=== PATIENT | male | born 1980 | race Caucasian/White ===

== ENCOUNTER 2021-06-20 13:37 | Inpatient (IN) | payer OTHER, SELFPAY ==
[2021-06-20] VITALS (151 sets, daily range): BP systolic 149–179; BP diastolic 84–118; PULSE 94–137; RESP 9–29; TEMP 36.7–37.2; O2SAT 97–100
--- NOTE | 2021-06-20 14:15 | RT.EKG_ITS ---
APPROVED REPORT Exam: Resting ECG Reason for Exam: tachycardia Patient Location: E HR:115 bpm ECG Measurements Heart Rate 115 AXIS CO 164 P 36 QRSd 95 QRS 56 QT 348 T 41 QTc 481 Conclusion Sinus tachycardia...rate> 99
[2021-06-20 14:50] LABS: Source Nasal/Nares
[2021-06-20] MEDS: PHENobarbital 130 MG/ML VIAL IVP ×2 (15:19→16:07)
[2021-06-20] MEDS: Lactated Ringers 1,000 ML 1000 ML IV (15:19)
[2021-06-20 15:27] LABS: Abs Immature Grans 0.03 10^3/uL (0.0-0.06); Absolute Basophil Count 0.02 10^3/uL (0.0-0.2); Absolute Eosinophil Count 0.16 10^3/uL (0.0-0.7); Absolute Lymphocyte Count 0.49 10^3/uL (1.2-3.4); Absolute Monocyte Count 0.55 10^3/uL (0.1-0.8); Absolute Neutrophil Count 4.52 10^3/uL (1.2-6.7); Basophils % 0.3; Eosinophils % 2.8; HCT 40.2 % (40.0-50.0); HGB 13.7 g/dL (13.5-17.5); Immature Grans % 0.5; Lymphocytes % 8.5; MCH 30.7 pg (27.0-33.0); MCHC 34.1 % (32.0-36.0); MCV 90 fL (80-95); MPV 12.5 fL (8.0-11.0); Monocytes % 9.5; Neutrophils % 78.4; RBC 4.46 10^6/uL (4.36-5.78); RDW 13.9 % (11.8-14.1); WBC 5.77 10^3/uL (4.4-10.8)
[2021-06-20 15:29] LABS: COVID-19 PCR Negative (Negative)
[2021-06-20 15:33] LABS: Ammonia < 10 umol/L (11-32)
--- NOTE | 2021-06-20 15:33 | ED.GENADUL_ITS ---
Discharge Plan Disposition Patient Disposition: [facility] INPATIENT Condition: Serious Discharge Details Clinical Impression: Alcohol withdrawal, Seizure, Thrombocytopenia Admit Date/Time: 06/20/21 18:54 Admit Provider: Sajan Ryan Attending Provider: Sajan Ryan Primary Care Provider: None,None ED Provider: Jayant Harris Discharge Data Discharge Date/Time-TO BE ENTERED AT DEPARTURE: 06/20/21 20:02 Medical Decision Making <MIKY Car Last Filed: 06/21/21 09:48> Patient is alert and oriented x1, maintaining airway, I suspect patient had a seizure as he has bilateral tongue lacerations Patient appears load in speech, disheveled, tremulous, with injected conjunctiva His CIWA is 19 He was given phenobarb 130, he is very elusive about how much he drinks on a daily basis Patient was notably tachycardic in the 130s upon initial assessment, his EKG does not show acute abnormality Patient will likely need admission, he is agreeable to admission at this time IV was placed Diagnostic labs pneumonia pending I think patient also needs CT scan with new onset seizure and likely alcohol withdrawal transferred to Jayant Harris PA-C at 1600 Medical Records Medical records reviewed: Yes I reviewed the patient's medical records. Lab Data Lab results reviewed: Yes I reviewed the patient's lab results. <MIKY Hinton Last Filed: 06/20/21 18:57> Patient is alert and oriented x1, maintaining airway, I suspect patient had a seizure as he has bilateral tongue lacerations Patient appears load in speech, disheveled, tremulous, with injected conjunctiva His CIWA is 19 He was given phenobarb 130, he is very elusive about how much he drinks on a daily basis Patient was notably tachycardic in the 130s upon initial assessment, his EKG does not show acute abnormality Patient will likely need admission, he is agreeable to admission at this time IV was placed Diagnostic labs pneumonia pending I think patient also needs CT scan with new onset seizure and likely alcohol withdrawal transferred to Jayant Harris PA-C at 1600 1600 Jayant Harris PA-C I assumed care of this 41-year-old gentleman from my colleague MIKY Burk, please see her initial HPI and examination. In short, 41-year-old gentleman presented not feeling well, reporting sweating, feeling tremulous, over the past day or so. Reports that he binge drinks at least 2 times a week and last drink 2 nights ago. Apparently upon presentation he appeared as though he may be post ictal. Patient received phenobarbital 130x2, bag of IV fluid as well as a banana bag. Heart rate went from the 130s down into the low 100s. Upon my evaluation he is awake, alert, oriented to self, location, situation, he is unsure of the exact date. Laboratory values reveal a white blood cell count of 5.77 hemoglobin 13.7 hematocrit 40.2. Platelet count is just 39. There are no petechiae like rash is present on his evaluation. Sodium 131 potassium 3.8 chloride 94 anion gap 11.3 creatinine 1.0 with a GFR greater than 60. Glucose 103, phosphorus 2.4 magnesium 3.0 total bili 1.2 AST 146, ALT 108, alk phosphatase 85. Liver enzymes slightly elevated. Ammonia less than 10, lipase 126, TSH 0.72. Tox screen positive for barbiturates, alcohol level less than 3, COVID-negative. Both head CT and chest x-ray read by radiology as unremarkable. Resting heart rate of 113 but upon patient standing to urinate heart rate does jump up into the 150s. He sits back down the heart rate goes back down into the 110's and 120s. Repeat CIWA of 12-13 41-year-old gentleman with what appears to be alcohol withdrawal, seizure elevated LFTs and thrombocytopenia. He has been treated with phenobarbital for his alcohol withdrawal. Plan is to contact our hospitalist team to admit the patient to our ICU Case discussed with Dr. Ryan who is agreeable to admission and will write admission orders but request that we add on a PT and INR. Will add on PT and INR This documentation was generated using [employer] system, please disregard any oddities of phrase or misspellings. Medical Records Medical records reviewed: Yes I reviewed the patient's medical records. Imaging Data Radiologic Study: Attestation: I personally reviewed and interpreted this imaging study as follows: Imaging: CT Scan Radiologist's impression: PROCEDURE INFORMATION: Exam: CT Head Without Contrast Exam date and time: 06/20/2021 4:43 PM Age: 41 years old Clinical indication: Patient HX: Alcohol withdrawal, seizure TECHNIQUE: Imaging protocol: Computed tomography of the head without contrast. Radiation optimization: All CT scans at this facility use at least one of these dose optimization techniques: automated exposure control; mA and/or kV adjustment per patient size (includes targeted exams where dose is matched to clinical indication); or iterative reconstruction. COMPARISON: No relevant prior studies available. FINDINGS: Brain: Unremarkable. No intracranial hemorrhage. Unremarkable white matter. No mass effect. Cerebral ventricles: No ventriculomegaly. Paranasal sinuses: Right maxillary sinus mucosal cyst or polyp. Mastoid air cells: Visualized mastoid air cells are well aerated. Auditory system: Debris occludes the left external auditory canal. Bones/joints: Unremarkable. No acute fracture. Soft tissues: Unremarkable. IMPRESSION: 1. Right maxillary sinus mucosal cyst or polyp. 2. Debris occludes the left external auditory canal. Patient could benefit from removal for improved hearing and balance. Radiologic Study #2: Attestation: I personally reviewed and interpreted this imaging study as follows: Imaging: X-Ray Radiologist's impression: PROCEDURE INFORMATION: Exam: XR Chest Exam date and time: 06/20/2021 4:45 PM Age: 41 years old Clinical indication: Other: AMS TECHNIQUE: Imaging protocol: XR of the chest. Views: 2 views. COMPARISON: No relevant prior studies available. FINDINGS: Lungs: Unremarkable. No consolidation. Pleural spaces: Unremarkable. No pleural effusion. No pneumothorax. Heart/Mediastinum: Unremarkable. No cardiomegaly. Bones/joints: Old right clavicular fracture. IMPRESSION: No acute cardiopulmonary findings. Lab Data Labs: Laboratory Tests Range/Units 06/20/21 06/20/21 06/20/21 14:32 14:45 14:45 WBC (4.4-10.8) 10^3/uL 5.77 RBC (4.36-5.78) 10^6/uL 4.46 Hgb (13.5-17.5) g/dL 13.7 Hct (40.0-50.0) % 40.2 MCV (80-95) fL 90 MCH (27.0-33.0) pg 30.7 MCHC (32.0-36.0) % 34.1 RDW (11.8-14.1) % 13.9 Plt Count (130-400) 10^3/uL 39 L MPV (8.0-11.0) fL 12.5 H Immature Gran % 0.5 Neutrophils % 78.4 Lymphocytes % 8.5 Monocytes % 9.5 Eosinophils % 2.8 Basophils % 0.3 Nucleated RBC % (0.0-0.3) % 0.0 Absolute Neutrophils (1.2-6.7) 10^3/uL 4.52 Absolute Lymphocytes (1.2-3.4) 10^3/uL 0.49 L Absolute Monocytes (0.1-0.8) 10^3/uL 0.55 Absolute Eosinophils (0.0-0.7) 10^3/uL 0.16 Absolute Basophils (0.0-0.2) 10^3/uL 0.02 RBC Morphology See Below Stomatocytes 2+ Sodium (136-145) mmol/L 131 L Potassium (3.5-5.1) mmol/L 3.8 Chloride (98-107) mmol/L 94 L Carbon Dioxide (21.0-32.0) mmol/L 25.7 Anion Gap (3-11) mmol/L 11.3 H BUN (7-18) mg/dL 14 Creatinine (0.70-1.30) mg/dL 1.1 Estimated GFR/1.73 m2 (mL/min/1.73m2) >= 60.00 Glucose (74-106) mg/dL 103 Calcium (8.5-10.1) mg/dL 8.5 Phosphorus (2.6-4.7) mg/dL Magnesium (1.8-2.4) mg/dL 3.0 H Total Bilirubin (0.2-1.0) mg/dL 1.2 H AST (15-37) U/L 146 H ALT (16-63) U/L 108 H Alkaline Phosphatase (46-116) U/L 85 Ammonia (11-32) umol/L Total Protein (6.4-8.2) g/dL 7.7 Albumin (3.4-5.0) g/dL 4.2 Lipase (73-393) U/L 126 TSH (0.36-3.74) uIU/mL 0.72 Urine Opiates Screen (Negative) Urine Methadone Screen (Negative) Ur Barbiturates Screen (Negative) Ur Tricyclics Screen (Negative) Ur Amphetamines Screen (Negative) U Benzodiazepines Scrn (Negative) Urine Cocaine Screen (Negative) Ur THC Screen (Negative) Ethyl Alcohol (<10) mg/dL COVID-19 Source Nasal/Nares SARS-CoV-2 (PCR) (Negative) Negative Range/Units 06/20/21 06/20/21 06/20/21 14:45 14:45 14:45 WBC (4.4-10.8) 10^3/uL RBC (4.36-5.78) 10^6/uL Hgb (13.5-17.5) g/dL Hct (40.0-50.0) % MCV (80-95) fL MCH (27.0-33.0) pg MCHC (32.0-36.0) % RDW (11.8-14.1) % Plt Count (130-400) 10^3/uL MPV (8.0-11.0) fL Immature Gran % Neutrophils % Lymphocytes % Monocytes % Eosinophils % Basophils % Nucleated RBC % (0.0-0.3) % Absolute Neutrophils (1.2-6.7) 10^3/uL Absolute Lymphocytes (1.2-3.4) 10^3/uL Absolute Monocytes (0.1-0.8) 10^3/uL Absolute Eosinophils (0.0-0.7) 10^3/uL Absolute Basophils (0.0-0.2) 10^3/uL RBC Morphology Stomatocytes Sodium (136-145) mmol/L Potassium (3.5-5.1) mmol/L Chloride (98-107) mmol/L Carbon Dioxide (21.0-32.0) mmol/L Anion Gap (3-11) mmol/L BUN (7-18) mg/dL Creatinine (0.70-1.30) mg/dL Estimated GFR/1.73 m2 (mL/min/1.73m2) Glucose (74-106) mg/dL Calcium (8.5-10.1) mg/dL Phosphorus (2.6-4.7) mg/dL 2.4 L Magnesium (1.8-2.4) mg/dL Total Bilirubin (0.2-1.0) mg/dL AST (15-37) U/L ALT (16-63) U/L Alkaline Phosphatase (46-116) U/L Ammonia (11-32) umol/L < 10 L Total Protein (6.4-8.2) g/dL Albumin (3.4-5.0) g/dL Lipase (73-393) U/L TSH (0.36-3.74) uIU/mL Urine Opiates Screen (Negative) Urine Methadone Screen (Negative) Ur Barbiturates Screen (Negative) Ur Tricyclics Screen (Negative) Ur Amphetamines Screen (Negative) U Benzodiazepines Scrn (Negative) Urine Cocaine Screen (Negative) Ur THC Screen (Negative) Ethyl Alcohol (<10) mg/dL < 3.0 COVID-19 Source SARS-CoV-2 (PCR) (Negative) Range/Units 06/20/21 18:00 WBC (4.4-10.8) 10^3/uL RBC (4.36-5.78) 10^6/uL Hgb (13.5-17.5) g/dL Hct (40.0-50.0) % MCV (80-95) fL MCH (27.0-33.0) pg MCHC (32.0-36.0) % RDW (11.8-14.1) % Plt Count (130-400) 10^3/uL MPV (8.0-11.0) fL Immature Gran % Neutrophils % Lymphocytes % Monocytes % Eosinophils % Basophils % Nucleated RBC % (0.0-0.3) % Absolute Neutrophils (1.2-6.7) 10^3/uL Absolute Lymphocytes (1.2-3.4) 10^3/uL Absolute Monocytes (0.1-0.8) 10^3/uL Absolute Eosinophils (0.0-0.7) 10^3/uL Absolute Basophils (0.0-0.2) 10^3/uL RBC Morphology Stomatocytes Sodium (136-145) mmol/L Potassium (3.5-5.1) mmol/L Chloride (98-107) mmol/L Carbon Dioxide (21.0-32.0) mmol/L Anion Gap (3-11) mmol/L BUN (7-18) mg/dL Creatinine (0.70-1.30) mg/dL Estimated GFR/1.73 m2 (mL/min/1.73m2) Glucose (74-106) mg/dL Calcium (8.5-10.1) mg/dL Phosphorus (2.6-4.7) mg/dL Magnesium (1.8-2.4) mg/dL Total Bilirubin (0.2-1.0) mg/dL AST (15-37) U/L ALT (16-63) U/L Alkaline Phosphatase (46-116) U/L Ammonia (11-32) umol/L Total Protein (6.4-8.2) g/dL Albumin (3.4-5.0) g/dL Lipase (73-393) U/L TSH (0.36-3.74) uIU/mL Urine Opiates Screen (Negative) Negative Urine Methadone Screen (Negative) Negative Ur Barbiturates Screen (Negative) Positive A Ur Tricyclics Screen (Negative) Negative Ur Amphetamines Screen (Negative) Negative U Benzodiazepines Scrn (Negative) Negative Urine Cocaine Screen (Negative) Negative Ur THC Screen (Negative) Negative Ethyl Alcohol (<10) mg/dL COVID-19 Source SARS-CoV-2 (PCR) (Negative) HPI <MIKY Car - Last Filed: 06/21/21 09:48> General Date/Time Provider Initiated Documentation: 06/20/21 14:06 . HPI Narrative: This 41-year-old male with history of hypertension presents with vague complaints and is a poor historian about feeling very tired. He states he is also not been sleeping well. He was noted to have trauma in triage and when asked regarding the fact that occasionally he has a tremor. He denies any pain complaints does state he has some mild pressure in his head. He denies any fever or chills. He states that his son been sick with cough and cold symptoms but denies any personal history of the symptoms. Denies any calf pain or swelling. Denies any recent exotic travel. Denies illicit drug use. Report alcohol use but denies daily use. Related Data Home Medications Medication Instructions Recorded Confirmed losartan 25 mg tablet mg 06/20/21 Allergies Allergy/AdvReac Type Severity Reaction Status Date / Time No Known Allergies Allergy Unverified 06/20/21 13:59 General Stated Complaint: RespSymp AZAEL: 3 Review of Systems <MIKY Car - Last Filed: 06/21/21 09:48> All systems reviewed & are unremarkable except as noted in HPI and below PFSH <MIKY Car - Last Filed: 06/21/21 09:48> All Active Problems (Updated 06/20/21 @ 23:38 by Sajan Ryan) Alcoholic hepatitis without ascites (Chronic) Atrial flutter (Acute) Essential hypertension (Chronic) Obstructive sleep apnea (Chronic) Alcohol withdrawal (Acute) Seizure (Acute) Thrombocytopenia (Chronic) Medical History ADHD (attention deficit hyperactivity disorder) Anxiety Subdural hematoma Surgical History Appendectomy Family History (Updated 06/20/21 @ 23:32 by Sajan Ryan) Other Alcohol use disorder Essential hypertension Heart disease Personal history of malignant neoplasm Social History Smoking/Tobacco Use Status: Former Tobacco Use Smoking risk assessment performed?: Yes Alcohol Intake: current Drug use: Rarely Substance use type: marijuana Details: Pt states he only drinks in intervals, is poor historian and not answering in definite amounts Do you feel safe at home: Yes Do you feel safe in your relationship?: Yes Exam <MIKY Car - Last Filed: 06/21/21 09:48> Const General: cooperative, comfortable and no acute distress Orientation: alert and oriented x3 HENMT Other: Tongue laceration bilaterally Eyes Conjunctivae: conjunctival abnormality Pupils: PERRL Neck Other: no midline tenderness Resp Effort & Inspection: normal respiratory effort Auscultation: clear to auscultation bilaterally Cardio Rate: tachycardic Rhythm: regular rhythm GI Inspection: normal to inspection Other: Nontender abdominal exam, no visible sign of trauma Skin Other: Diaphoretic Neuro General: patient alert and patient oriented x3 Other: Tremulous alert and oriented to person and month, unable to recall the year and president Extrem General: normal to inspection Psych Appearance: disheveled Speech and Movement: pressured speech and restless Mood: anxious mood Attitude: cooperative Thought Content: no homicidality and suicidality Course <MIKY Car - Last Filed: 06/21/21 09:48> Vital Signs Vital signs: Vital Signs Temperature 37.2 C 06/20/21 13:55 Pulse 136 H 06/20/21 13:55 Respiratory Rate 20 06/20/21 13:55 Blood Pressure 151/92 H 06/20/21 13:55 Pulse Oximetry 97 06/20/21 13:55 Temperature 37.2 C 06/20/21 13:55 Temperature Source Temporal Artery Scan 06/20/21 13:55 Pulse 136 H 06/20/21 13:55 Respiratory Rate 20 06/20/21 13:55 Respiratory Effort Non-Labored 06/20/21 15:27 Respiratory Pattern Normal 06/20/21 15:11 Blood Pressure 151/92 H 06/20/21 13:55 Blood Pressure Position Sitting 06/20/21 13:55 Pulse Oximetry 97 06/20/21 13:55 Oxygen Delivery Method Room Air 06/20/21 13:55 Oxygen Flow Rate 0 06/20/21 13:55 Pain Level 0 06/20/21 13:55 Lab/Test Results Lab/Test Results: Laboratory Tests Range/Units 06/20/21 06/20/21 14:32 14:45 Ammonia (11-32) umol/L < 10 L COVID-19 Source Nasal/Nares <MIKY Hinton - Last Filed: 06/20/21 18:57> Critical Care Time Critical Care Time: Yes Total Critical Care Time: 35 Attestation: Upon my evaluation, this patient had a high probability of clinically significant, life-threatening deterioration due to their current medical conditions, which required my direct attention, intervention, and personal management. I have personally provided greater than 30 minutes of critical care time exclusive of the time spend on separately billable procedures. Time includes obtaining a history, examining the patient, pulse oximetry, review of laboratory data, radiology results, discussion with consultants, arranging urgent treatment with development of a management plan, evaluation of patient's response to treatment, and monitoring for potential decompensation. Interventions were performed as documented above. Sign Out <MIKY Car - Last Filed: 06/21/21 09:48> Sign Out Data: Sign Out Comment: pending labs, ct head, ciwa, likely admission for etoh withdrawal, PUI Last updated by Tonya Burk PA at 06/20/21 15:43 PAWSS <MIKY Car - Last Filed: 06/21/21 09:48> Have you Been Recently Intoxicated or Drunk Within the Last 30 days?: Yes Have you Ever Experienced Previous Episodes of Alcohol Withdrawal?: Yes Have you ever Experienced Withdrawal Seizures?: No Have you ever Experienced Delirium Tremens(DT)s?: Yes Have you ever undergone Alcohol Rehabilitation Treatment (i.e, inpt ot out patient treatment programs)?: No Have you ever Experienced Blackouts?: No Have you ever Combined Alcohol with other Downers within the last 90 days?: No Have you ever Combined Alcohol with any other Substance of Abuse during the last 90 days?: No Positive Blood Alcohol level on Presentation? [PCS.BAL]: Yes Evidence of Increased Autonomic Activity (i.e. HR>120, tremor, sweating, agitation, nausea)?: Yes Result: 5 <MIKY Hinton - Last Filed: 06/20/21 18:57> Result: 5
[2021-06-20 15:37] LABS: ETHANOL BLOOD < 3.0 mg/dL (<10)
[2021-06-20 15:38] LABS: PHOSPHORUS 2.4 mg/dL (2.6-4.7)
[2021-06-20 15:46] LABS: ALT 108 U/L (16-63); AST 146 U/L (15-37); Albumin 4.2 g/dL (3.4-5.0); Alkaline Phosphatase 85 U/L (46-116); Anion Gap 11.3 mmol/L (3-11); BUN 14 mg/dL (7-18); Bilirubin, Total 1.2 mg/dL (0.2-1.0); CO2 25.7 mmol/L (21.0-32.0); CREATININE 1.1 mg/dL (0.70-1.30); Calcium 8.5 mg/dL (8.5-10.1); Chloride 94 mmol/L (98-107); Glucose 103 mg/dL (74-106); Lipase 126 U/L (73-393); Potassium 3.8 mmol/L (3.5-5.1); Sodium 131 mmol/L (136-145); TSH (W/Ref FT4) 0.72 uIU/mL (0.36-3.74); Total Protein 7.7 g/dL (6.4-8.2)
[2021-06-20 16:08] LABS: Diff Comment Diff Reviewed; Platelet Count 39 10^3/uL (130-400)
[2021-06-20 16:09] LABS: Stomatocytes 2+
[2021-06-20] MEDS: MAGNESIUM SULFATE 8.12 MEQ, MULTIVITAMIN 10 ML, THIAMINE 100 MG, FOLIC ACID 1 MG in Nor... 168.867 MG IV (16:23)
--- NOTE | 2021-06-20 16:30 | DI.RAD_ITS ---
Exam(s) XR CHEST 2V PA LATERAL EXAM: XR CHEST 2V PA LATERAL CLINICAL HISTORY: ams TECHNIQUE: 2D digital imaging was performed. COMPARISON: CR CHEST 2 VIEWS PA,LAT from 05/08/2012 FINDINGS: The heart is not enlarged. The lungs are clear and well expanded. No pleural effusion seen. Mediastin al contours appear intact. IMPRESSION: Normal chest. RADIATION DOSE DELIVERED: Total DLP
--- NOTE | 2021-06-20 16:47 | DI.CT_ITS ---
Exam(s) CT HEAD WO EXAM: CT HEAD WO CLINICAL HISTORY: alcohol withdrawal seizure. TECHNIQUE: Imaging Protocol: Axial computed tomography images with coronal and sagittal reformatted images were created and reviewed COMPARISON: CT HEAD WITHOUT CONTRAST from 05/15/2013 FINDINGS: The ventricular system is normal in appearance. No evidence of acute intracranial hemorrhage, mass effect, or midline shift. The orbital structures are unremarkable. The temporal bone structures appear intact. Calvarium: Normal. Visualized Paranasal sinuses/Mastoids: Clear except for a probable right maxillary retention cyst. IMPRESSION: Normal cranial CT. RADIATION DOSE DELIVERED: 919.16mGy.cm Total DLP 919.16mGy.cm Total DLP !Error CTDIvol DATA REPOSITORY: All CT scans at this facility are submitted to the National Radiology Data Registry (NRDR) Dose Index Registry (DIR) with the [employer] [place] [employer] ([employer]). RADIATION OPTIMIZATION: All CT scans at this facility use at least one of these dose optimization te chniques: automated exposure control; mA and/or kV adjustment per patient size (includes targeted exa ms where dose is matched to clinical indication); or iterative reconstruction.
--- NOTE | 2021-06-20 17:01 | DI.VRAD_ITS ---
PROCEDURE INFORMATION: Exam: XR Chest Exam date and time: 06/20/2021 4:45 PM Age: 41 years old Clinical indication: Other: AMS TECHNIQUE: Imaging protocol: XR of the chest. Views: 2 views. COMPARISON: No relevant prior studies available. FINDINGS: Lungs: Unremarkable. No consolidation. Pleural spaces: Unremarkable. No pleural effusion. No pneumothorax. Heart/Mediastinum: Unremarkable. No cardiomegaly. Bones/joints: Old right clavicular fracture. IMPRESSION: No acute cardiopulmonary findings. Dictated and Authenticated by: Rachel Jacobo MD. Ordering:AMINATA Saba MD
--- NOTE | 2021-06-20 17:08 | DI.VRAD_ITS ---
PROCEDURE INFORMATION: Exam: CT Head Without Contrast Exam date and time: 06/20/2021 4:43 PM Age: 41 years old Clinical indication: Patient HX: Alcohol withdrawal, seizure TECHNIQUE: Imaging protocol: Computed tomography of the head without contrast. Radiation optimization: All CT scans at this facility use at least one of these dose optimization techniques: automated exposure control; mA and/or kV adjustment per patient size (includes targeted exams where dose is matched to clinical indication); or iterative reconstruction. COMPARISON: No relevant prior studies available. FINDINGS: Brain: Unremarkable. No intracranial hemorrhage. Unremarkable white matter. No mass effect. Cerebral ventricles: No ventriculomegaly. Paranasal sinuses: Right maxillary sinus mucosal cyst or polyp. Mastoid air cells: Visualized mastoid air cells are well aerated. Auditory system: Debris occludes the left external auditory canal. Bones/joints: Unremarkable. No acute fracture. Soft tissues: Unremarkable. IMPRESSION: 1. Right maxillary sinus mucosal cyst or polyp. 2. Debris occludes the left external auditory canal. Patient could benefit from removal for improved hearing and balance. Dictated and Authenticated by: Rachel Jacobo MD. Ordering:IADLMIS Castaneda MD
[2021-06-20 18:33] LABS: *AMPHETAMINES SCREEN URINE Negative (Negative); *BARBITURATES SCREEN URINE Positive (Negative); *BENZODIAZEPINES SCREEN URINE Negative (Negative); Cannabinoids THC Negative (Negative); Cocaine Screen,Urine Negative (Negative); METHADONE URINE SCREEN Negative (Negative); OPIATES URINE SCREEN Negative (Negative)
[2021-06-20 18:48] LABS: Tricyclic Antidepressants Negative (Negative)
--- NOTE | 2021-06-20 19:06 | HPE_ITS ---
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 Patient was noted to be having tremors and noted to have bitten his tongue and probably had an alcohol withdrawal seizure at home prior to presentation. He has not had a drink over the last day. He is vague about his alcohol consumption but does binge drink and has had follow-up with alcohol since he was a teenager and in the [employer] where he did go through alcohol rehabilitation. He also has a history of atrial flutter with tachycardia in the ED but this appears to be more sinus tachycardia. Patient will be given IV hydration. He is on phenobarbital with alcohol withdrawal protocol and still received a loading dose no delusional thoughts but having severe tremors with tachycardia and hypotension. His labs will be trended and once he is through alcohol withdrawal he should be seen by alcohol rehabilitation or outpatient treatment least if not inpatient with rotation. He is ready for change. He does have a strong family history of alcoholism. (2) Seizure: Start date: 06/20/21 Status: Acute Assessment and plan: Patient appears to have bit his tongue and was thought to be slightly more confused and postictal in the ED. He has had alcohol withdrawal seizures in the past. Patient is on phenobarbital for alcohol withdrawal also help with a seizure activity. If active seizures we could give additional treatment such as IV. Need to watch for oversedation. (3) Alcoholic hepatitis without ascites: Status: Chronic Assessment and plan: Patient appears to have sequela of chronic alcohol use with elevated liver function test especially the total bilirubin with slightly elevated PT/INR and electrolyte adenopathy with low sodium. He also has low platelet count. Long- term he should have his liver imaged and follow-up with hepatology. If he has not had a hepatitis screen is to be obtained. This should improve off alcohol with better diet. (4) Essential hypertension: Status: Chronic Assessment and plan: Patient most likely has chronic happened with chronic alcohol use and was only on losartan. 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 At rest patient's heart rate does decrease and he will also r eceive IV hydration. Follow-up EKG in the morning. History of Present Illness History of Present Illness Chief Complaint: Tremors with alcohol withdrawal Narrative: This is a 41-year-old male patient who has been drinking heavily but usually with binging since he was a teenager. He resented to the ED with his son who was coughing and having problems breathing with crying when the caregivers saw that the patient was tremulous and apparently had bit his tongue and was having problems with what appeared to be alcohol withdrawal. The patient does admit to drinking heavily but is vague about amounts and also has been to give history of previous alcohol treatment when he was in the [employer] and had 2 incidents of alcohol-related problems prompting that treatment. 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 His son was taken home by his mother and the patient was evaluated in the ED with IV hydration with tachycardia and having a history of atrial flutter only on losartan for hypertension as an outpatient. He was given phenobarbital loading dose which is ongoing and will be on a valproic protocol with phenobarbital treatment. Tachycardia with hypotension can be treated with beta-lisbeth with losartan being held for now. Patient is awake and tremulous with pressured speech and appears to be alert and oriented at least to person place. He is fidgety and rest. He states he is not sleeping well and does not sleep well and he has alcohol withdrawal at home. He is open to an even inpatient treatment if helpful or stopping alcohol. Patient did have abnormal liver functions indicating chronic alcoholic hepatitis with low platelet count but not overt liver failure. He does have a strong family history of alcoholism. 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 He denies any abdominal swelling or peripheral edema. He is unsteady when drinking or with driving with what he calls a hangover. No focal neurological complaints presently no headache. Review of Systems Narrative: 13 point review of systems otherwise unrevealing, unobtainable or stable. Patient has not been teaching school recently has had no major weight change. PFSH All Active Problems (Updated 06/20/21 @ 23:38 by Sajan Ryan) Alcoholic hepatitis without ascites (Chronic) Atrial flutter (Acute) Essential hypertension (Chronic) Obstructive sleep apnea (Chronic) Alcohol withdrawal (Acute) Seizure (Acute) Thrombocytopenia (Chronic) Medical History ADHD (attention deficit hyperactivity disorder) Anxiety Subdural hematoma Surgical History Appendectomy Family History (Updated 06/20/21 @ 23:32 by Sajan Ryan) Other Alcohol use disorder Essential hypertension Heart disease Personal history of malignant neoplasm Social History Smoking/Tobacco Use Status: Former Tobacco Use Smoking risk assessment performed?: Yes Alcohol Intake: current Drug use: Rarely Substance use type: marijuana Details: Pt states he only drinks in intervals, is poor historian and not answering in definite amounts Do you feel safe at home: Yes Do you feel safe in your relationship?: Yes Meds Allergies and Home Medications Allergies Allergy/AdvReac Type Severity Reaction Status Date / Time No Known Allergies Allergy Unverified 06/20/21 13:59 Home Medications Medication Instructions Recorded Confirmed Type losartan 25 mg tablet mg 06/20/21 History Exam Narrative Exam Narrative: General: Patient appears appropriate for age, unkempt and tremulous in very fidgety and moves about in the during the interview and exam. He is alert and oriented at least to person place and possibly to time. He is in no acute distress but as stated slightly fidgety with pressured speech. HEENT: Normocephalic, eyes with pupils equal and reactive light symmetrically, extraocular movements active sclera grossly anicteric. Oropharynx with mucosa and fair dentition. Patient tongue does have bruising with appears to be lacerations over the sides of the tip of the tongue with no active bleeding. Neck: Supple without JVD. Back: Stooped posture without CVA tenderness. Lungs: Clear to auscultation percussion with no focalizing rales or rhonchi. Fair aeration. Heart: Tachycardic and regular with no murmur or gallop appreciated. Abdomen: Normal contour, soft nontender to palpation with no palpable hepatosplenomegaly. Bowel sounds positive all quadrants. Genitalia/rectal: Exam deferred. Extremities: Without clubbing, cyanosis or pitting edema. Peripheral pulses intact. Skin: Normal color, warm and moist. Neuro: Cranial nerves II through XII grossly intact, no focalizing motor deficits. Diffuse coarse tremor especially with activity. Psych: Anxious affect and depressed mood. No delusional thoughts or abnormal thought processes manifested. Remote and recent memory grossly intact. Results Imaging Imaging Studies: Exam: XR Chest Exam date and time: 06/20/2021 4:45 PM Age: 41 years old Clinical indication: Other: AMS TECHNIQUE: Imaging protocol: XR of the chest. Views: 2 views. COMPARISON: No relevant prior studies available. FINDINGS: Lungs: Unremarkable. No consolidation. Pleural spaces: Unremarkable. No pleural effusion. No pneumothorax. Heart/Mediastinum: Unremarkable. No cardiomegaly. Bones/joints: Old right clavicular fracture. IMPRESSION: No acute cardiopulmonary findings. Exam: CT Head Without Contrast Exam date and time: 06/20/2021 4:43 PM Age: 41 years old Clinical indication: Patient HX: Alcohol withdrawal, seizure TECHNIQUE: Imaging protocol: Computed tomography of the head without contrast. Radiation optimization: All CT scans at this facility use at least one of these dose optimization techniques: automated exposure control; mA and/or kV adjustment per patient size (includes targeted exams where dose is matched to clinical indication); or iterative reconstruction. COMPARISON: No relevant prior studies available. FINDINGS: Brain: Unremarkable. No intracranial hemorrhage. Unremarkable white matter. No mass effect.? Cerebral ventricles: No ventriculomegaly. Paranasal sinuses: Right maxillary sinus mucosal cyst or polyp. Mastoid air cells: Visualized mastoid air cells are well aerated. Auditory system: Debris occludes the left external auditory canal. Bones/joints: Unremarkable. No acute fracture. Soft tissues: Unremarkable. IMPRESSION: 1. Right maxillary sinus mucosal cyst or polyp. 2. Debris occludes the left external auditory canal. Patient could benefit from removal for improved hearing and balance. Labs Result diagrams: 06/20/21 14:45 06/20/21 14:45 Labs: Laboratory Results - last 24 hr 06/20/21 06/20/21 06/20/21 14:32 14:45 14:45 WBC 5.77 RBC 4.46 Hgb 13.7 Hct 40.2 MCV 90 MCH 30.7 MCHC 34.1 RDW 13.9 Plt Count 39 L MPV 12.5 H Immature Gran % 0.5 Neutrophils % 78.4 Lymphocytes % 8.5 Monocytes % 9.5 Eosinophils % 2.8 Basophils % 0.3 Nucleated RBC % 0.0 Absolute Neutrophils 4.52 Absolute Lymphocytes 0.49 L Absolute Monocytes 0.55 Absolute Eosinophils 0.16 Absolute Basophils 0.02 RBC Morphology See Below Stomatocytes 2+ Sodium 131 L Potassium 3.8 Chloride 94 L Carbon Dioxide 25.7 Anion Gap 11.3 H BUN 14 Creatinine 1.1 Estimated GFR/1.73 m2 >= 60.00 Glucose 103 Calcium 8.5 Phosphorus Magnesium 3.0 H Total Bilirubin 1.2 H AST 146 H ALT 108 H Alkaline Phosphatase 85 Ammonia Total Protein 7.7 Albumin 4.2 Lipase 126 TSH 0.72 Urine Opiates Screen Urine Methadone Screen Ur Barbiturates Screen Ur Tricyclics Screen Ur Amphetamines Screen U Benzodiazepines Scrn Urine Cocaine Screen Ur THC Screen Ethyl Alcohol COVID-19 Source Nasal/Nares SARS-CoV-2 (PCR) Negative 06/20/21 06/20/21 06/20/21 14:45 14:45 14:45 WBC RBC Hgb Hct MCV MCH MCHC RDW Plt Count MPV Immature Gran % Neutrophils % Lymphocytes % Monocytes % Eosinophils % Basophils % Nucleated RBC % Absolute Neutrophils Absolute Lymphocytes Absolute Monocytes Absolute Eosinophils Absolute Basophils RBC Morphology Stomatocytes Sodium Potassium Chloride Carbon Dioxide Anion Gap BUN Creatinine Estimated GFR/1.73 m2 Glucose Calcium Phosphorus 2.4 L Magnesium Total Bilirubin AST ALT Alkaline Phosphatase Ammonia < 10 L Total Protein Albumin Lipase TSH Urine Opiates Screen Urine Methadone Screen Ur Barbiturates Screen Ur Tricyclics Screen Ur Amphetamines Screen U Benzodiazepines Scrn Urine Cocaine Screen Ur THC Screen Ethyl Alcohol < 3.0 COVID-19 Source SARS-CoV-2 (PCR) 06/20/21 18:00 WBC RBC Hgb Hct MCV MCH MCHC RDW Plt Count MPV Immature Gran % Neutrophils % Lymphocytes % Monocytes % Eosinophils % Basophils % Nucleated RBC % Absolute Neutrophils Absolute Lymphocytes Absolute Monocytes Absolute Eosinophils Absolute Basophils RBC Morphology Stomatocytes Sodium Potassium Chloride Carbon Dioxide Anion Gap BUN Creatinine Estimated GFR/1.73 m2 Glucose Calcium Phosphorus Magnesium Total Bilirubin AST ALT Alkaline Phosphatase Ammonia Total Protein Albumin Lipase TSH Urine Opiates Screen Negative Urine Methadone Screen Negative Ur Barbiturates Screen Positive A Ur Tricyclics Screen Negative Ur Amphetamines Screen Negative U Benzodiazepines Scrn Negative Urine Cocaine Screen Negative Ur THC Screen Negative Ethyl Alcohol COVID-19 Source SARS-CoV-2 (PCR) Last Vital Signs Temp 37.2 C 06/20/21 13:55 Pulse 115 H 06/20/21 18:00 Resp 24 06/20/21 18:13 BP 156/95 H 06/20/21 18:00 Pulse Ox 99 06/20/21 17:48 PAWSS Have you Been Recently Intoxicated or Drunk Within the Last 30 days?: Yes Have you Ever Experienced Previous Episodes of Alcohol Withdrawal?: Yes Have you ever Experienced Withdrawal Seizures?: No Have you ever Experienced Delirium Tremens(DT)s?: Yes Have you ever undergone Alcohol Rehabilitation Treatment (i.e, inpt ot outpatient treatment programs)?: No Have you ever Experienced Blackouts?: No Have you ever Combined Alcohol with other Downers within the last 90 days?: No Have you ever Combined Alcohol with any other Substance of Abuse during the last 90 days?: No Positive Blood Alcohol level on Presentation? [PCS.BAL]: Yes Evidence of Increased Autonomic Activity (i.e. HR>120, tremor, sweating, agitation, nausea)?: Yes Result: 5
[2021-06-20 19:55] LABS: PTT Activated 24.8 sec (21.0-27.5); Prothrombin Time 9.9 sec (9.3-11.0)
[2021-06-20] MEDS: PHENobarbital 130 MG/ML VIAL 100 MG IVPB (21:45)
[2021-06-20] MEDS: Metoprolol 25 MG TAB PO (23:35)
[2021-06-20] MEDS: Normal Saline 1,000 ML 125 ML IV (23:36)
[2021-06-21] VITALS (92 sets, daily range): BP systolic 118–149; BP diastolic 69–99; PULSE 68–112; RESP 12–37; TEMP 36.5–37.2; O2SAT 99
[2021-06-21] MEDS: PHENobarbital 130 MG/ML VIAL 270 MG IVPB ×2 (00:34→04:25)
[2021-06-21] MEDS: Normal Saline 50 ML 100 ML IVPB (00:35)
[2021-06-21] MEDS: Metoprolol 25 MG TAB PO ×3 (05:57→19:18)
[2021-06-21 07:04] LABS: Abs Immature Grans 0.01 10^3/uL (0.0-0.06); Absolute Basophil Count 0.02 10^3/uL (0.0-0.2); Absolute Eosinophil Count 0.04 10^3/uL (0.0-0.7); Absolute Lymphocyte Count 1.11 10^3/uL (1.2-3.4); Absolute Monocyte Count 0.46 10^3/uL (0.1-0.8); Absolute Neutrophil Count 2.72 10^3/uL (1.2-6.7); Basophils % 0.5; Eosinophils % 0.9; HCT 39.3 % (40.0-50.0); HGB 13.1 g/dL (13.5-17.5); Immature Grans % 0.2; Lymphocytes % 25.5; MCH 30.1 pg (27.0-33.0); MCHC 33.3 % (32.0-36.0); MCV 90 fL (80-95); MPV 12.2 fL (8.0-11.0); Monocytes % 10.6; Neutrophils % 62.3; RBC 4.35 10^6/uL (4.36-5.78); RDW 14.1 % (11.8-14.1); RDW-SD 46.9 fL; WBC 4.36 10^3/uL (4.4-10.8)
[2021-06-21 07:14] LABS: Prothrombin Time 9.9 sec (9.3-11.0)
[2021-06-21 07:22] LABS: Platelet Count 38 10^3/uL (130-400)
[2021-06-21 07:30] LABS: BUN 10 mg/dL (7-18); CREATININE 1.1 mg/dL (0.70-1.30); Calcium 7.9 mg/dL (8.5-10.1); Chloride 99 mmol/L (98-107); Glucose 105 mg/dL (74-106); PHOSPHORUS 3.7 mg/dL (2.6-4.7); Potassium 3.4 mmol/L (3.5-5.1); Sodium 135 mmol/L (136-145)
[2021-06-21 07:34] LABS: ALT 98 U/L (16-63); AST 134 U/L (15-37); Albumin 3.5 g/dL (3.4-5.0); Alkaline Phosphatase 69 U/L (46-116); Bilirubin, Direct 0.3 mg/dL (0.0-0.2); Bilirubin, Total 1.2 mg/dL (0.2-1.0); Magnesium 3.3 mg/dL (1.8-2.4); Total Protein 6.8 g/dL (6.4-8.2)
[2021-06-21 07:37] LABS: Lab Add On Test COMPLETED
[2021-06-21 07:58] LABS: Creatine Kinase 2682 U/L (39-308)
--- NOTE | 2021-06-21 08:18 | INITIAL_ITS ---
- If Service Date Differs Date of service: 06/21/21 Time of Service: 08:18 Care Management Initial Assess REASON FOR HOSPITALIZATION:: Alcohol withdrawal PAST MEDICAL HISTORY/PAST SURGICAL HISTORY:: All Active Problems (Updated 06/20/21 @ 23:38 by Sajan Ryan). Alcoholic hepatitis without ascites (Chronic). Atrial flutter (Acute). Essential hypertension (Chronic). Obstructive sleep apnea (Chronic). Alcohol withdrawal (Acute). Seizure (Acute). Thrombocytopenia (Chronic). Medical History . ADHD (attention deficit hyperactivity disorder). Anxiety. Subdural hematoma. Surgical History . Appendectomy PREVIOUS FUNCTIONAL STATUS/SOCIAL/FAMILY SUPPORTS:: Tera lives in [facility] in a small dwelling on his father's property. He is but from his . Tera has an 8 year old son from a previous relationship and a son and a daughter with his . 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 He is independent at baseline. CURRENT FUNCTIONAL STATUS:: Tera was sitting up in bed in the ICU when CM met with him. He had informed staff that he intended to leave [place]. Tera had received a phone call from someone in the community who encouraged him to leave. Dr. Engle and CM met with him and Dr. Engle explained the risks associated with alcohol withdrawal and the possible outcomes if untreated. Tera asked appropriate questions about the science of his condition, and was convinced by the responses, to remain in the hospital. Tera agreed to speak to a [employer] and JOSEL made the referral. The [employer] Edmar will call him today and will meet him in person when he is ready. Tera did share with CM that he is willing to seek treatment in a recovery program. Tera does not have any commercial or state insurance however he [facility] [place]. CM contacted the [facility] to notify them of his admission today. [facility] notification ID # is [id number] Has patient been provided with info about the portal/API?: Yes Did the patient sign up for the portal?: No CODE STATUS:: Full Code INSURANCE COVERAGE / FINANCIAL ISSUES:: none CURRENT HOME/COMMUNITY SERVICES/EQUIPMENT:: Receives disability and is 90% disabled by the [facility]. PRIMARY CARE PHYSICIAN:: with [facility] [place] POTENTIAL DISCHARGE NEEDS:: establish care with a new PCP. Alcohol use treatment PATIENT/FAMILY EDUCATION NEEDS:: Review of discharge instructions, limitations, activity, follow up plan, discuss [facility] TRANSPORTATION:: via private vehicle with family PLAN:: Anticipate that Tera will be discharged home with no new home services. He would likely benefit from treatment for his alcohol use disorder as well as the support of a [employer]. He will establish with a new PCP and transport with family.
[2021-06-21 08:57] LABS: Lab Add On Test DONE
[2021-06-21 09:08] LABS: PHENOBARBITAL 12.5 ug/mL (15.0-40.0)
[2021-06-21] MEDS: POTASSIUM CHLORIDE/0.9% NACL 1,000 ML 150 MEQ IV ×2 (09:51→16:43)
[2021-06-21] MEDS: Carbamide Peroxide 15 ML BTL AS (09:52)
[2021-06-21] MEDS: Thiamine 100 MG TAB PO (09:52)
[2021-06-21] MEDS: Multivitamin TAB 1 TAB PO (09:52)
[2021-06-21] MEDS: Folic Acid 1 MG TAB PO (09:52)
--- NOTE | 2021-06-21 11:49 | W.PM.PROGNOT ---
Date of Service Date of service: 06/21/21 Time of Service: 08:40 Assessment and Plan Assessment and plan (1) Alcohol withdrawal: Status: Acute Assessment and plan: Continue phenobarbital - prn doses. Continue PO thiamine, MVI. Check b12/folate levels (given thrombocytopenia). Suspect rhabdomyolysis is due to alcohol withdrawal seizure. Continue to monitor in the ICU. Patient advised to stay and not leave AMA. Because of transaminitis, we are doing phenobarbital carefully and will recheck his phenobarbital level after we get to the 20 mg/kg IBW dosing. (2) Seizure: Status: Acute Assessment and plan: Suspected alcohol withdrawal seizure prior to admission. Rhabdomyolysis is likely due to this. Phenobarbital should be protective against the seizure as well as treating symptoms of alcohol withdrawal. Continue to monitor in the ICU. (3) Rhabdomyolysis: Status: Acute Assessment and plan: In setting of EtOH W/d seizure at home. No evidence of JU yet. Continue IVF x 24 hrs and recheck CPK in am. (4) Transaminitis: Status: Acute Assessment and plan: Some of this is due to rhabdomyolysis, but hyperbilirubinemia cannot be explained by this. EtOH liver disease is suspected, but we need to rule out viral hepatitis as well as cholecystitis given RUQ tenderness. Obtain viral hepatitis panel and US RUQ. If this were due to alcoholic hepatitis, his Maddrey's discriminant function score is 0.7, predicting good prognosis and no indication for prednisolone. Because of transaminitis, we are dosing phenobarbital carefully (rechecking phenobarbital level after getting to 20 mg/kg IBW dose). (5) Thrombocytopenia: Status: Acute Assessment and plan: While this is likely due to Chronic EtOH abuse, the patient has a high risk of having vitamin B12 deficiency as well as a tick borne illness. Check Vitamin B12 level and a lyme/tick panel. (6) RUQ pain: Status: Acute Assessment and plan: very mild. Check US RUQ as well as hepatitis studies. (7) Alcohol abuse: Status: Chronic Assessment and plan: As above Check vitamin levels. Care management has met with the patient today to discuss his sobriety resources/options. (8) Hypokalemia: Status: Acute Assessment and plan: Replete, recheck in am (9) Hypermagnesemia: Status: Acute Assessment and plan: The patient is not on magnesium supplementation here. Will monitor. (10) DVT prophylaxis: Status: Acute Assessment and plan: SCDs (11) Discharge planning issues: Status: Acute Assessment and plan: Full code Continues to require ICU. Total Critical Care Time 45 minutes. Subjective Subjective Interval history since last seen: Mr Rae states that he is feeling a lot better today. He feels less tremulous. He feels pain in his B thighs. Denies dizziness, chest pain, shortness of breath, nausea. He feels back to baseline this am (his latest score on CIWA is 13). He was talking about leaving AMA but decided to stay. Exam Narrative Exam Narrative: General: Pleasant middle-aged male who is cooperative, minimally tremulous, A&Ox3, multiple scabs HEENT: EOMI, MMM Heart: RRR, no m/r/g Lungs: CTAB Abdomen: soft, no ascites, ?tender in RUQ Extremities: trace edema BLEs Objective Last Vital Signs Temp 37.1 C 06/21/21 04:00 Pulse 75 06/21/21 04:01 Resp 19 06/21/21 04:30 BP 127/83 06/21/21 04:01 Pulse Ox 99 06/20/21 19:50 Laboratory Results - last 24 hr 06/20/21 06/20/21 06/20/21 14:32 14:45 14:45 WBC 5.77 RBC 4.46 Hgb 13.7 Hct 40.2 MCV 90 MCH 30.7 MCHC 34.1 RDW 13.9 Plt Count 39 L MPV 12.5 H Immature Gran % 0.5 Neutrophils % 78.4 Lymphocytes % 8.5 Monocytes % 9.5 Eosinophils % 2.8 Basophils % 0.3 Nucleated RBC % 0.0 Absolute Neutrophils 4.52 Absolute Lymphocytes 0.49 L Absolute Monocytes 0.55 Absolute Eosinophils 0.16 Absolute Basophils 0.02 RBC Morphology See Below Stomatocytes 2+ PT INR APTT Sodium 131 L Potassium 3.8 Chloride 94 L Carbon Dioxide 25.7 Anion Gap 11.3 H BUN 14 Creatinine 1.1 Estimated GFR/1.73 m2 >= 60.00 Glucose 103 Calcium 8.5 Phosphorus Magnesium 3.0 H Total Bilirubin 1.2 H Conjugated Bilirubin AST 146 H ALT 108 H Alkaline Phosphatase 85 Ammonia Creatine Kinase Total Protein 7.7 Albumin 4.2 Lipase 126 TSH 0.72 Urine Opiates Screen Urine Methadone Screen Ur Barbiturates Screen Ur Tricyclics Screen Ur Amphetamines Screen Phenobarbital U Benzodiazepines Scrn Urine Cocaine Screen Ur THC Screen Ethyl Alcohol COVID-19 Source Nasal/Nares SARS-CoV-2 (PCR) Negative Add-On Test Request 06/20/21 06/20/21 06/20/21 14:45 14:45 14:45 WBC RBC Hgb Hct MCV MCH MCHC RDW Plt Count MPV Immature Gran % Neutrophils % Lymphocytes % Monocytes % Eosinophils % Basophils % Nucleated RBC % Absolute Neutrophils Absolute Lymphocytes Absolute Monocytes Absolute Eosinophils Absolute Basophils RBC Morphology Stomatocytes PT INR APTT Sodium Potassium Chloride Carbon Dioxide Anion Gap BUN Creatinine Estimated GFR/1.73 m2 Glucose Calcium Phosphorus 2.4 L Magnesium Total Bilirubin Conjugated Bilirubin AST ALT Alkaline Phosphatase Ammonia < 10 L Creatine Kinase Total Protein Albumin Lipase TSH Urine Opiates Screen Urine Methadone Screen Ur Barbiturates Screen Ur Tricyclics Screen Ur Amphetamines Screen Phenobarbital U Benzodiazepines Scrn Urine Cocaine Screen Ur THC Screen Ethyl Alcohol < 3.0 COVID-19 Source SARS-CoV-2 (PCR) Add-On Test Request 06/20/21 06/20/21 06/21/21 18:00 19:34 05:47 WBC 4.36 L RBC 4.35 L Hgb 13.1 L Hct 39.3 L MCV 90 MCH 30.1 MCHC 33.3 D RDW 14.1 Plt Count 38 L MPV 12.2 H Immature Gran % 0.2 Neutrophils % 62.3 Lymphocytes % 25.5 Monocytes % 10.6 Eosinophils % 0.9 Basophils % 0.5 Nucleated RBC % 0.0 Absolute Neutrophils 2.72 Absolute Lymphocytes 1.11 L Absolute Monocytes 0.46 Absolute Eosinophils 0.04 Absolute Basophils 0.02 RBC Morphology Stomatocytes PT 9.9 INR 1.0 APTT 24.8 Sodium Potassium Chloride Carbon Dioxide Anion Gap BUN Creatinine Estimated GFR/1.73 m2 Glucose Calcium Phosphorus Magnesium Total Bilirubin Conjugated Bilirubin AST ALT Alkaline Phosphatase Ammonia Creatine Kinase Total Protein Albumin Lipase TSH Urine Opiates Screen Negative Urine Methadone Screen Negative Ur Barbiturates Screen Positive A Ur Tricyclics Screen Negative Ur Amphetamines Screen Negative Phenobarbital U Benzodiazepines Scrn Negative Urine Cocaine Screen Negative Ur THC Screen Negative Ethyl Alcohol COVID-19 Source SARS-CoV-2 (PCR) Add-On Test Request 06/21/21 06/21/21 06/21/21 05:47 05:47 05:47 WBC RBC Hgb Hct MCV MCH MCHC RDW Plt Count MPV Immature Gran % Neutrophils % Lymphocytes % Monocytes % Eosinophils % Basophils % Nucleated RBC % Absolute Neutrophils Absolute Lymphocytes Absolute Monocytes Absolute Eosinophils Absolute Basophils RBC Morphology Stomatocytes PT 9.9 INR 1.0 APTT Sodium 135 L Potassium 3.4 L Chloride 99 Carbon Dioxide 29.0 Anion Gap 7.0 BUN 10 Creatinine 1.1 Estimated GFR/1.73 m2 >= 60.00 Glucose 105 Calcium 7.9 L Phosphorus 3.7 Magnesium 3.3 H Total Bilirubin 1.2 H Conjugated Bilirubin 0.3 H AST 134 H ALT 98 H Alkaline Phosphatase 69 Ammonia Creatine Kinase 2682 H Total Protein 6.8 Albumin 3.5 Lipase TSH Urine Opiates Screen Urine Methadone Screen Ur Barbiturates Screen Ur Tricyclics Screen Ur Amphetamines Screen Phenobarbital U Benzodiazepines Scrn Urine Cocaine Screen Ur THC Screen Ethyl Alcohol COVID-19 Source SARS-CoV-2 (PCR) Add-On Test Request 06/21/21 06/21/21 06/21/21 05:47 05:47 07:36 WBC RBC Hgb Hct MCV MCH MCHC RDW Plt Count MPV Immature Gran % Neutrophils % Lymphocytes % Monocytes % Eosinophils % Basophils % Nucleated RBC % Absolute Neutrophils Absolute Lymphocytes Absolute Monocytes Absolute Eosinophils Absolute Basophils RBC Morphology Stomatocytes PT INR APTT Sodium Potassium Chloride Carbon Dioxide Anion Gap BUN Creatinine Estimated GFR/1.73 m2 Glucose Calcium Phosphorus Magnesium Total Bilirubin Conjugated Bilirubin AST ALT Alkaline Phosphatase Ammonia Creatine Kinase Total Protein Albumin Lipase TSH Urine Opiates Screen Urine Methadone Screen Ur Barbiturates Screen Ur Tricyclics Screen Ur Amphetamines Screen Phenobarbital 12.5 L U Benzodiazepines Scrn Urine Cocaine Screen Ur THC Screen Ethyl Alcohol COVID-19 Source SARS-CoV-2 (PCR) Add-On Test Request DONE COMPLETED PAWSS Have you Been Recently Intoxicated or Drunk Within the Last 30 days?: Yes Have you Ever Experienced Previous Episodes of Alcohol Withdrawal?: Yes Have you ever Experienced Withdrawal Seizures?: No Have you ever Experienced Delirium Tremens(DT)s?: Yes Have you ever undergone Alcohol Rehabilitation Treatment (i.e, inpt ot outpatient treatment programs)?: No Have you ever Experienced Blackouts?: No Have you ever Combined Alcohol with other Downers within the last 90 days?: No Have you ever Combined Alcohol with any other Substance of Abuse during the last 90 days?: No Positive Blood Alcohol level on Presentation? [PCS.BAL]: Yes Evidence of Increased Autonomic Activity (i.e. HR>120, tremor, sweating, agitation, nausea)?: Yes Result: 5 Multi-Disciplinary Checklist Lines/Tubes CENTRAL LINE: no ARTERIAL LINE: no SOUTH: no ENDOTRACHEAL TUBE: no ICU Maintenance GLUCOSE 140-180mg/dL: yes NUTRITION AT GOAL: yes PRESSURE ULCER: no RESTRAINTS: no ANTIBIOTICS(if yes, consider Stewardship): No Social Issues FAMILY UPDATED: no, Reason/Intervention: Patient able to update family PT/OT: no, GOALS/DISPOSITION/PASSENGER TRAIN BRAKER: yes CODE STATUS: Full Prophylaxis DVT PROPHYLAXIS: yes GI PROPHYLAXIS: no
[2021-06-21] MEDS: PHENobarbital 130 MG/ML VIAL IVP ×3 (12:01→19:46)
--- NOTE | 2021-06-21 23:54 | NUR.NOTE ---
Nursing Note: At approx 19:20 patient began getting dressed and removed his LW IV from his arm. He was pacing about the room and expressing intent to leave AMA. This nurse spoke with him, affirmed his feelings of worry and restlessness, advised him that these were signs of withdrawal, recommended to him that he stay the night. Patient agreed to stay the night and receive another dose of phenobarb. His RAC IV was discovered to be occluded and was removed. Patient agreed to have another IV place. At approx 1945 a new IV was placed. Patient received dose of phenobarb. Agreed to stay the night. patient refused a subsequent dose of phenobarb offered at about 21:10. At approx 21:25 patient began to be move about the room again and state intention to leave. Removed his IV again. Was given sandwich and persuaded to go back to his room. MD notified about lack of iv access and repeated removals of IV, asked for alternate medication route.MD advised using IM route if IV not available. At 22:00 this RN talked to patient, presented choice between IV and IM medication administration. Patient agreed to try IV restart. This RN attempted one IV re-start which was unsuccessful. Subsequent attempts not possible as both ICu RNs became occupied in other rooms. Patient agreed to rest in his room until RNs available.
--- NOTE | 2021-06-22 00:15 | NUR.NOTE ---
RN approached pt to attempt to insert a new IV as discussed with patient prior. As soon as I entered the room the pt was getting his jacket on and gathering his things. I explained the need for the IV in order to get the medicine he needed in his system. He stated I dont need it i've already had a seizure, its all over now. Attempted to redirect patient for about 15 minutes before patient walked out of room and signed AMA form on nurses station desk, and then proceeded to leave the unit. I asked him multiple times to wait a few minutes for me to call the dr but he walked out and got on the elevator. Nursing Note:
--- NOTE | 2021-08-23 19:27 | W.PM.DS.N ---
Date of service: 08/23/21 Time of Service: 19:27 DS: Diagnosis Discharge Diagnosis (1) Alcohol withdrawal: Status: Acute (2) Seizure: Status: Acute (3) Rhabdomyolysis: Status: Acute (4) Transaminitis: Status: Acute (5) Thrombocytopenia: Status: Acute (6) RUQ pain: Status: Acute (7) Alcohol abuse: Status: Chronic (8) Hypokalemia: Status: Acute (9) Hypermagnesemia: Status: Acute (10) DVT prophylaxis: Status: Acute (11) Discharge planning issues: Status: Acute Discharge Plan Disposition Patient Disposition: AGAINST MEDICAL ADVICE Condition: Serious Discharge Details Reason For Visit: Alcohol withdrawal,Alcoholic hepatitis,Seizure Admit Date/Time: 06/20/21 18:54 Admit Provider: Sajan Ryan Attending Provider: Sajan Ryan Primary Care Provider: None,None Hospital Course Hospital Course: 41 male admitted with alcohol withdrawal, possible withdrawal seizure, and presumed alocolic hepatitis Started on phenobarbital protocol. On hospital day 3 patient left AMA. Home Meds and New Rx's Prescriptions: No Action losartan 25 mg Tablet Label Comments: 06/19/21 pt is unsure of dose Discharge Orders Discharge Orders: Discharge Order (Routine); Ordered 08/23/21 Ordered By: Sajan Diggs Discharge Data Discharge Date/Time-TO BE ENTERED AT DEPARTURE: 06/21/21 23:40 Discharge Comment: left AMA DS: Summary Time Spent with Patient providing and/or coordinating discharge services: Less than 30 minutes Status at Discharge Functional status at discharge: independent ambulation Overall status at discharge: patient is not back to baseline Mental Status: mental status grossly normal Speech and Movement: speech and movement normal Mood: congruent mood Affect: normal affect Exam Psych Mental Status: mental status grossly normal Speech and Movement: speech and movement normal Mood: congruent mood Affect: normal affect DS: Data Vitals/I&O Vitals and I&O: Vital Signs Temperature 37.2 C 06/21/21 16:40 Temperature Source Temporal Artery Scan 06/21/21 16:40 Pulse 78 06/21/21 16:46 Pulse 80 06/21/21 17:30 Respiratory Rate 22 06/21/21 17:00 Respiratory Effort 06/21/21 19:45 Respiratory Depth Normal 06/21/21 19:45 Respiratory Pattern Normal 06/21/21 19:45 Blood Pressure 134/74 06/21/21 16:46 Blood Pressure Mean 88 06/21/21 16:46 Blood Pressure Position Sitting 06/21/21 16:40 Pulse Oximetry 99 06/21/21 16:40 Oxygen Delivery Method Room Air 06/21/21 16:40 Oxygen Flow Rate 0 06/21/21 16:40 Pain Level 0 06/22/21 00:16 PFSH All Active Problems (Updated 06/21/21 @ 12:03 by Judy Engle MD) Alcohol abuse (Chronic) Discharge planning issues (Acute) DVT prophylaxis (Acute) Rhabdomyolysis (Acute) Hypermagnesemia (Acute) Hypokalemia (Acute) Transaminitis (Acute) RUQ pain (Acute) Alcoholic hepatitis without ascites (Chronic) Atrial flutter (Acute) Essential hypertension (Chronic) Obstructive sleep apnea (Chronic) Alcohol withdrawal (Acute) Seizure (Acute) Thrombocytopenia (Acute) Medical History ADHD (attention deficit hyperactivity disorder) Anxiety Subdural hematoma Surgical History Appendectomy Family History (Updated 06/20/21 @ 23:32 by Sajan Ryan) Other Alcohol use disorder Essential hypertension Heart disease Personal history of malignant neoplasm Social History Smoking/Tobacco Use Status: Former Tobacco Use Smoking risk assessment performed?: Yes Alcohol Intake: current Drug use: Rarely Substance use type: marijuana Details: Pt states he only drinks in intervals, is poor historian and not answering in definite amounts Do you feel safe at home: Yes Do you feel safe in your relationship?: Yes
== END 2021-06-21 23:40 | disposition left against medical advice (07) | DRG 894 ==
LOC: ER 20:02 → ICU 20:07
PROVIDERS: Internal Medicine; Physician Assistant; Admitting Provider Family Medicine; Emergency Provider Physician Assistant; Visit Provider Family Medicine
DX: F10.139 Alcohol abuse with withdrawal, unspecified (principal); I48.92 Unspecified atrial flutter; M62.82 Rhabdomyolysis; R56.9 Unspecified convulsions; I10 Essential (primary) hypertension; D69.6 Thrombocytopenia, unspecified; K70.10 Alcoholic hepatitis without ascites; G47.33 Obstructive sleep apnea (adult) (pediatric); F41.9 Anxiety disorder, unspecified; F90.9 Attention-deficit hyperactivity disorder, unspecified type; R74.01 Elevation of levels of liver transaminase levels; E80.6 Other disorders of bilirubin metabolism; E83.42 Hypomagnesemia; E87.6 Hypokalemia
CPT/HCPCS: 36415; 80048; 80053; 80076; 80307; 82550; 83690; 86704; 86706; 86709; 86803; 87340; 87635; 87798; 93005; 96361; 96365; 96366; 96375; 99291; 70450; 71046; 80184; 80320; 82140; 82607; 82728; 82746; 83540; 83550; 83735; 84100; 84443; 85025; 85610; 85730; 86618; 93010; 99223; J2560

== ENCOUNTER 2023-06-09 09:26 | Inpatient (IN) | payer OTHER, SELFPAY ==
[2023-06-09] VITALS (61 sets, daily range): BP systolic 87–168; BP diastolic 52–130; PULSE 102–149; RESP 9–29; TEMP 36.7–37.3; O2SAT 90–100
--- NOTE | 2023-06-09 09:30 | RT.EKG_ITS ---
APPROVED REPORT Exam: Resting ECG Reason for Exam: Detox Patient Location: E HR:115 bpm ECG Measurements Heart Rate 115 AXIS VA 176 P 48 QRSd 104 QRS 75 QT 338 T 45 QTc 469 Conclusion Sinus tachycardia [address] depressions no stemi
--- NOTE | 2023-06-09 09:47 | ED.GENADUL_ITS ---
Discharge Plan Disposition Patient Disposition: Admit to [facility] Condition: Poor Discharge Details Chief Complaint: ETOHWithdr Clinical Impression: Transaminitis, Alcohol abuse, Alcohol withdrawal Admit Date/Time: 06/09/23 11:12 Admit Provider: Jayant Kothari Attending Provider: Jayant Kothari Primary Care Provider: None,None ED Provider: Alicja Warner Discharge Data Discharge Date/Time-TO BE ENTERED AT DEPARTURE: 06/09/23 12:07 HPI General Date/Time Provider Initiated Documentation: 06/09/23 09:33 . Limitations to Documentation: no limitations . Information obtained by: patient, EMS, RN notes reviewed and old records reviewed . History of Present Illness 43 year old M presents to the emergency department with the chief complaint of would like to have assisted ETOH detox, described as severe and similar to prior episodes, Quality is described as other (denies any pain currently), Patient started experiencing this year(s) (long hx of ETOH use, more heavy in recent weeks) and it has been constant. other things that improve symptom(s), (ETOH intake) Other factors that worsen symptoms (cessation) . Patient notes headaches, loss of appetite, malaise and nausea/vomiting; denies chest pain, cough, fever/chills, rash, shortness of breath, syncope and weakness. Patient did receive the following treatments prior to arrival, none Related Data Home Medications Medication Instructions Recorded Confirmed losartan 25 mg tablet 25 mg PO DAILY 06/20/21 06/09/23 Allergies Allergy/AdvReac Type Severity Reaction Status Date / Time No Known Allergies Allergy Unverified 06/20/21 13:59 General Stated Complaint: ETOHWithdr AZAEL: 2 Review of Systems Constitutional Constitutional: Reports as per HPI, Denies chills, Denies fever(s) and Denies weakness Eyes Eyes: Denies change in vision Cardiovascular Cardiovascular: Reports as per HPI, Denies chest pain, Denies lightheadedness, Denies dyspnea and Denies dyspnea on exertion Respiratory Respiratory: Reports as per HPI, Denies cough, Denies dyspnea and Denies dyspnea on exertion Gastrointestinal Gastrointestinal: Reports as per HPI, Denies abdominal pain, Reports nausea and Reports vomiting (associates with ETOH) Genitourinary Genitourinary: Denies system reviewed and no additional complaints, except as documented (denies any change in urinary habits) Musculoskeletal Musculoskeletal: Denies abnormal gait Integumentary/Breasts Skin/Breast: Reports as per HPI and Denies rash Neurologic Neurologic: Denies abnormal movements, Denies abnormal speech, Denies abnormal gait, Denies paresthesias and Denies weakness Psychiatric Psychiatric: Reports abnormal sleep pattern, Reports anxiety, Reports depression, Reports mood swings, Denies homicidal ideation and Denies suicidal ideation Exam Const General: cooperative, not healthy appearing, no acute distress, well developed, anxious, disheveled, ill appearing acutely and chronically, intoxicated appear ing and No well hydrated Nutritional Appearance: average body habitus and well nourished Orientation: alert and awake [facility] Head: normal to inspection and atraumatic Mouth: oral mucosae normal, lip normal and tongue normal Teeth and gingiva: dentition normal Throat: posterior oropharynx normal Eyes Conjunctivae: conjunctival abnormality bilaterally conjunctival injection Sclera: sclerae normal Pupils: PERRL and normal by confrontation Resp Effort & Inspection: normal respiratory effort, able to speak in complete sentences and no respiratory distress Auscultation: clear to auscultation bilaterally, no rales, no rhonchi and no wheezes Cardio Rate: tachycardic Rhythm: regular rhythm Heart Sounds: S1 normal and S2 normal GI Inspection: normal to inspection Palpation: soft, no hepatosplenomegaly, not firm, no guarding, not rigid and nontender Percussion: normal to percussion Auscultation: hypoactive bowel sounds Skin General skin exam: no rashes or lesions noted Trauma: no lacerations or abrasions Neuro General: patient alert and patient awake Cognition: normal cognition Speech: speech normal Gait: normal gait Psych Appearance: disheveled Mental Status: mental status grossly normal Speech and Movement: restless Mood: anxious mood Affect: labile affect Attitude: cooperative and guarded Thought Process: normal Thought Content: normal and suicidality Insight: limited Judgment: limited Course Vital Signs Vital signs: Vital Signs Temperature 36.8 C 06/09/23 09:27 Pulse 135 H 06/09/23 09:27 Respiratory Rate 18 06/09/23 09:27 Blood Pressure 168/109 H 06/09/23 09:27 Pulse Oximetry 99 06/09/23 09:27 Temperature 36.8 C 06/09/23 09:27 Temperature Source Tympanic 06/09/23 09:27 Pulse 135 H 06/09/23 09:27 Respiratory Rate 18 06/09/23 09:27 Blood Pressure 168/109 H 06/09/23 09:27 Pulse Oximetry 99 06/09/23 09:27 Oxygen Delivery Method Room Air 06/09/23 09:27 Oxygen Flow Rate 0 06/09/23 09:27 Medical Decision Making Patient is a pleasant 43-year-old gentleman brought in via EMS requesting assistance with alcohol withdrawal. Patient has been admitted here for the same in the past, was here few years ago, was admitted for alcohol withdrawal, seizure, rhabdomyolysis, transaminitis, thrombocytopenia. He reports that over the past 3 weeks he has been drinking at least 1 box of wine per day. Feels that he cannot continue with this. He does report that he feels depressed but denies suicidal or homicidal ideations. Typically receives his care at the [facility] and would ideally be transferred to their for continued management. He reports diminished PO intake, states taht with the ETOH, he struggles eating and will often vomit. No emesis today. Has tried to stop drinking in the past, states it has been quite awhile, by slowly reducing his ETOH intake. However, this has lead to seizures in the past, he feels that he is ready for assistance at this time and would prefer inpatient management. He denies anuy CP, SOB, abdominal pain. States that when his dogs jump on him, he can have pain in the RUQ, this is chronic discomfort. On exam, patient appears intoxicated. He is tachycardic, otherwise stable. No CP or SOB. Has emesis on his pants. Lungs are clear, normal cardiac exam aside from the notable tachycardia. He does appear anxious. Denies suicidality. However, he does report depression. Abdomen is benign. Lower extremity edema. No jaundiced. Patient did have epistaxis this morning which is atypical but no continued bleeding or bruising noted elsewhere. ECG was reviewed, patient tachycardic. QTc is slightly prolonged at 479. No acute ischemic changes noted. Concerned with his history for potential DTs and seizures. Will obtain labs, obtain IV. He is not actively withdrawing but likely will withdrawal shortly given how much he drinks. Will place patient on CIWA. Plan for phenobarbital. [facility] and would be appropriate given his current clinical state. [facility] does not have beds currently. Called back from [facility], physician advised that there is a outpatient bed facility there for a 4 week program. Residential recovery center. Gym, outside, feels like he would fit in well. Bed likely available in a few days. Put in transfer center tomorrow. [facility] would be able to take the patient tomorrow. Dr. Preston. Contacted by lab, concern for lactate of 3.0. Patient is receiving hydration. Also gave thiamine. Consider potential electrolyte abnormalities. Labs reviewed, thrombocytopenia with platelet count of 76. Coags within normal limits. Elevated anion gap of 14.7. AST 367, ALT 238, alk phos 119. Consider ultrasound for further evaluation given when he ate, will hold off for complete evaluation of the biliary tree. Patient's not having abdominal pain so doubt any surgical pathology at this time. Will add a lipase. Did not obtain this initially as patient was not having any abdominal pain. UDS is negative. His alcohol level 407. Patient began having withdrawal symptoms, feeling itchy more anxious morning to leave. Subsided with Ativan, phenobarbital started. As patient is not able to be transferred to the [facility] today, plan for admission given his medical state history today. Will admit him here. Per psychology, inpatient team should call back tomorrow and they believe there will be a bed available at that time. Plan for admission to their [facility] program and subsequent transfer to recovery and rehab. Discussed plan with the patient who is in agreement. Consulted with hospitalist, Dr. Tan at the end. I have ordered the remaining 3 doses of loading phenobarbital. Patient feeling improved, resting in stable condition. Tachycardia has improved although does increase with activity. Quality:SDOH Health Related Social Needs: No Data to Display [facility] All Active Problems (Updated 06/09/23 @ 13:42 by MIKY Prince) Alcohol abuse (Chronic) Discharge planning issues (Acute) DVT prophylaxis (Acute) Transaminitis (Acute) Alcoholic hepatitis without ascites (Chronic) Atrial flutter (Acute) Essential hypertension (Chronic) Obstructive sleep apnea (Chronic) Alcohol withdrawal (Acute) Seizure (Acute) Thrombocytopenia (Acute) Medical History ADHD (attention deficit hyperactivity disorder) Subdural hematoma Anxiety Surgical History Appendectomy Family History Other Alcohol use disorder Essential hypertension Heart disease Personal history of malignant neoplasm Social History Smoking/Tobacco Use Status: Former Tobacco Use Smoking risk assessment performed?: Yes Alcohol Intake: current Drug use: Rarely Substance use type: marijuana Details: Pt states he only drinks in intervals, is poor historian and not answering in definite amounts Housing: other Do you feel safe at home: Yes Do you feel safe in your relationship?: Yes
[2023-06-09 10:03] LABS: Abs Immature Grans 0.01 10^3/uL (0.0-0.06); Absolute Basophil Count 0.04 10^3/uL (0.0-0.2); Absolute Eosinophil Count 0.07 10^3/uL (0.0-0.7); Absolute Lymphocyte Count 2.23 10^3/uL (1.2-3.4); Absolute Neutrophil Count 3.18 10^3/uL (1.2-6.7); Basophils % 0.7; Eosinophils % 1.1; HCT 44.9 % (40.0-50.0); HGB 15.7 g/dL (13.5-17.5); Immature Grans % 0.2; Lymphocytes % 36.4; MCH 31.1 pg (27.0-33.0); MCV 89 fL (80-95); MPV 10.4 fL (8.0-11.0); Monocytes % 9.8; Neutrophils % 51.8; RBC 5.05 10^6/uL (4.36-5.78); RDW 14.2 % (11.8-14.1); RDW-SD 45.9 fL; WBC 6.13 10^3/uL (4.4-10.8)
--- NOTE | 2023-06-09 10:04 | NUR.NOTE ---
Seizure pads applied to bed at this time. Pt has hx of withdraw seizures. PT's phone also placed in charging dock for pt by this nurse. Nursing Note:
[2023-06-09] MEDS: Normal Saline 1,000 ML 1000 ML IV (10:13)
[2023-06-09] MEDS: THIAMINE 100 MG in Normal Saline 100 ML 200 MG IVPB (10:13)
[2023-06-09 10:18] LABS: Diff Comment PLT Morph Reviewed; RBC Morphology Normal
[2023-06-09 10:19] LABS: Platelet Count 76 10^3/uL (130-400)
[2023-06-09 10:22] LABS: ALT 238 U/L (16-63); AST 367 U/L (15-37); Alkaline Phosphatase 119 U/L (46-116); Anion Gap 14.7 mmol/L (3-11); BUN 11 mg/dL (7-18); Bilirubin, Total 0.6 mg/dL (0.2-1.0); CO2 26.3 mmol/L (21.0-32.0); CREATININE 0.9 mg/dL (0.70-1.30); Calcium 8.3 mg/dL (8.5-10.1); Chloride 101 mmol/L (98-107); Creatine Kinase 174 U/L (39-308); Estimated GFR 109.36 (mL/min/1.73m2); Glucose 105 mg/dL (74-106); Magnesium 2.1 mg/dL (1.8-2.4); Potassium 3.6 mmol/L (3.5-5.1); Sodium 142 mmol/L (136-145); Total Protein 7.8 g/dL (6.4-8.2)
[2023-06-09 10:22] LABS: Ammonia 20 umol/L (11-32)
[2023-06-09 10:23] LABS: ETHANOL BLOOD 407.5 mg/dL (<10)
[2023-06-09 10:27] LABS: Bilirubin Negative (Negative); Blood Trace-lysed (Negative); Clarity Sl Cloudy (Clear); Glucose Negative (Negative); Ketones Negative (Negative); Leukocyte Esterase Negative (Negative); Nitrite Negative (Negative); Specific Gravity 1.015 (1.005-1.025); Urobilinogen 0.2 mg/dL (Up to 0.2)
[2023-06-09 10:37] LABS: *AMPHETAMINES SCREEN URINE Negative (Negative); *BARBITURATES SCREEN URINE Negative (Negative); *BENZODIAZEPINES SCREEN URINE Negative (Negative); Cannabinoids THC Negative (Negative); Cocaine Screen,Urine Negative (Negative); METHADONE URINE SCREEN Negative (Negative); OPIATES URINE SCREEN Negative (Negative)
[2023-06-09 10:38] LABS: Tricyclic Antidepressants Negative (Negative)
[2023-06-09] MEDS: LORazepam 2 MG/ML VIAL 1 MG IVP ×2 (10:40→10:59)
--- NOTE | 2023-06-09 10:45 | DI.US_ITS ---
Exam(s) US ABDOMEN LIMITED EXAM: US ABDOMEN LIMITED CLINICAL HISTORY: transaminitis, RUQ TECHNIQUE: Ultrasound abdomen performed using standard protocol. COMPARISON: CT ABD PELVIS WITH CONTRAST from 01/03/2014 FINDINGS: There is no ascites evident. LIVER: Liver is hyperechoic coke indicating element of steatosis. There no discrete focal hepatic le sions identified. GALLBLADDER/BILIARY: There is a solitary hypoechoic 4 millimeter focus on the dependent wall of the g allbladder which is nonmobile and is either a small partially calcified polyp or small imbedded galls tone. The gallbladder wall is not thickened or edematous. The common hepatic duct isnot dilated, measuring 5mm at the level of shmuel hepatis. PANCREAS: There is no evidence of pancreatic mass nor dilatation of the pancreatic duct. RIGHT KIDNEY:No evidence of solid mass, calculus, nor hydronephrosis. No cortical cysts evident. IMPRESSION: 1. Solitary hyperechoic focus in the gallbladder measuring 4 millimeters, either polyp or small gall stone. There is no gallbladder wall edema in the patient was not tender over this area during scanni ng today. The CBD is not dilated. 2. Liver is hyperechoic indicating steatosis. There no discrete focal hepatic lesions. 3. No other right upper quadrant findings and no ascites. DATA REPOSITORY:
[2023-06-09 10:52] LABS: Bacteria Negative HPF (Negative); Epithelial Cells Negative HPF (Negative); RBC 0-2 HPF (0-2); WBC Negative HPF (0-5)
[2023-06-09 10:54] LABS: C & S Indicated? No; Casts 0-2 Fine Granular LPF (Negative); Mucus Negative (Negative)
[2023-06-09 11:05] LABS: INR 0.9 (0.9-1.1); Lipase 125 U/L (16-77); PTT Activated 26.6 sec (23.6-32.8); Prothrombin Time 9.3 sec (9.1-11.1)
[2023-06-09] MEDS: Lactated Ringers 1,000 ML 1000 ML IV (11:22)
--- NOTE | 2023-06-09 11:40 | HPE_ITS ---
Date of service: 06/09/23 Time of Service: 11:40 Assessment and Plan Assessment and plan (1) Alcohol withdrawal: Status: Acute Assessment and plan: continue alcohol withdrawal protocol w/ phenobarbital, thiamine and folic acid and MVI supplementation. will continue iv fluids as he still has significant lactate elevation and mildly elevated lipase, although clinically is not behaving like acute pancreatitis (may be still too intoxicated to notice). I will continue w/ LR resuscitation, repeat his lactate and lipase; get CT abdomen and pelvis if these do not resolve. as long as he is medically stable and responding to phenobarbital protocol, will plan for transfer to the [facility] in [place] tomorrow once a bed becomes available. He is wanting something to help w/ the cravings. consider acampostate once his acute alcoholic hepatitis has resolved and he has completed detox. Critical care time spent interviewing and examining the patient, reviewing studies, discussing case with patient's nurse and consulting physicians was 60 minutes Qualifiers: Complication of substance-induced condition: uncomplicated Qualified Code(s): F10.930 - Alcohol use, unspecified with withdrawal, uncomplicated (2) Alcohol abuse: Status: Chronic (3) Alcoholic hepatitis: Status: Acute Assessment and plan: transaminitis but w/ normal coagulation profile, normal bilirubin, ammonia and albumin. I expect him to recover once he has had some abstinence for a few day. will check hepatitis and HIV status. Qualifiers: Ascites presence: without ascites Qualified Code(s): K70.10 - Alcoholic hepatitis without ascites (4) Transaminitis: Status: Acute Assessment and plan: secondary to acute alcohol hepatitis (5) DVT prophylaxis: Status: Acute (6) Discharge planning issues: Status: Acute (7) Thrombocytopenia: Status: Acute Assessment and plan: secondary to chronic alcoholism; continue to monitor, if platelets drop below 50,000 then will hold lovenox in favor of mechanical DVT prophylaxis. (8) Lactate blood increased: Status: Acute Assessment and plan: continue iv fluids, repeat lactate level this evening, if continues to rise then will consider CT abdomen pelvis given his elevated lipase. History of Present Illness History of Present Illness Chief Complaint: I want to go through alcohol detoxification Narrative: 43 yr old male w/ hx of alcoholism, admits to one box of wine every day to two days, who has gone through acute alcohol withdrawal in the past complicated by seziures, who presented to the E.D[facility] at the advice of his psychiatrist from the [facility] [place]. Patient tried cutting down on his own but found that he was having increased tremors. Last drink was this morning w/ SUDHIR of 407 mg/dL (rest of urine tox screen was negative). Screening labs also showed acute transaminitis (AST 367, ALT 238, alkaline phosphatase 219) but w/ normal bilirubin 0.6; lactate elevated at 3.0, normal ammonia 20, mildly elevated lipase 125. Normal BUN and creatinine (11 and 0.9), normal CK and electrolytes. CBC w/ low platelets 76,000. but no anemia or leukocytosis. Normal prothrombin time and activated partial thromboplastin time. Patient's psychiatrist from the [facility] was contacted, Dr. Julien, who indicated that they could accept the patient but had no beds for today but recommended admission at [facility] to initiate alcohol withdrawal treatment and plan for transfer tomorrow when bed becomes available. Patient is not currently suicidal or homicidal although he has depressed mood/affect and is discouraged by his continued desires to drink alcohol. Review of Systems All systems reviewed & are unremarkable except as noted in HPI and below PFSH All Active Problems (Updated 06/09/23 @ 13:45 by Jayant Kothari MD) Alcoholic hepatitis (Acute) Lactate blood increased (Acute) Alcohol abuse (Chronic) Discharge planning issues (Acute) DVT prophylaxis (Acute) Transaminitis (Acute) Alcoholic hepatitis without ascites (Chronic) Essential hypertension (Chronic) Obstructive sleep apnea (Chronic) Alcohol withdrawal (Acute) Seizure (Acute) Thrombocytopenia (Acute) Medical History (Updated 06/09/23 @ 13:45 by Jayant Kothari MD) Atrial flutter ADHD (attention deficit hyperactivity disorder) Subdural hematoma Anxiety Surgical History Appendectomy Family History Other Alcohol use disorder Essential hypertension Heart disease Personal history of malignant neoplasm Social History Smoking/Tobacco Use Status: Former Tobacco Use Smoking risk assessment performed?: Yes Alcohol Intake: current Drug use: Rarely Substance use type: marijuana Details: Pt states he only drinks in intervals, is poor historian and not answering in definite amounts Housing: other Do you feel safe at home: Yes Do you feel safe in your relationship?: Yes Meds Allergies and Home Medications Allergies Allergy/AdvReac Type Severity Reaction Status Date / Time No Known Allergies Allergy Unverified 06/20/21 13:59 Home Medications Medication Instructions Recorded Confirmed Type losartan 25 mg tablet 25 mg PO DAILY 06/20/21 06/09/23 History Exam Narrative Exam Narrative: Middle aged white male, who is slurring his words but otherwise is alert, he is oriented to person/place/circumstances, he is frustrated over his continued drinking and wants help, speech is not dysarthric HEENT: plethoric facies, rubor, no rashes Neck: supple, nontender, normal carotid pulses although tachycardic, no JVD no adenopathy LUngs: clear Heart: tachycardic but regular, no murmur or rub or gallop. Abdomen: obese, soft, nontender, no organomegaly Extremities: no edema; he has subungual hematoma under right index finger nail; He has tremors particularly noticeable w/ finger to nose testing Neuro: tremulous, not diaphoretic, tremors more prominent when I asked him to perform finger to nose and heel to avila testing. No focal weakness Psychiatry: he seems a little agitated but affect is depressed, he cooperates w/ the exam and does not verbalize any hallucinations. he has slight tremors in his hands noticeble w/ voluntary movement Results Labs 06/09/23 09:50 06/09/23 09:50 Labs: Laboratory Results - last 24 hr 06/09/23 06/09/23 06/09/23 09:50 09:50 09:50 WBC 6.13 RBC 5.05 Hgb 15.7 Hct 44.9 MCV 89 MCH 31.1 MCHC 35.0 RDW 14.2 H Plt Count 76 L MPV 10.4 Immature Gran % 0.2 Neutrophils % 51.8 Lymphocytes % 36.4 Monocytes % 9.8 Eosinophils % 1.1 Basophils % 0.7 Nucleated RBC % 0.0 Absolute Neutrophils 3.18 Absolute Lymphocytes 2.23 Absolute Monocytes 0.60 Absolute Eosinophils 0.07 Absolute Basophils 0.04 RBC Morphology Normal PT 9.3 INR 0.9 APTT 26.6 VBG Lactate 3.0 H* Sodium 142 Potassium 3.6 Chloride 101 Carbon Dioxide 26.3 Anion Gap 14.7 H BUN 11 Creatinine 0.9 Est GFR (CKD-EPI 2020) 109.36 Glucose 105 Calcium 8.3 L Magnesium 2.1 Total Bilirubin 0.6 AST 367 H ALT 238 H Alkaline Phosphatase 119 H Ammonia Creatine Kinase Cancelled 174 Total Protein 7.8 Albumin 4.0 Lipase 125 H Urine Color Urine Clarity Urine pH Ur Specific Cary Urine Protein Urine Ketones Urine Blood Urine Nitrite Urine Bilirubin Urine Urobilinogen Ur Leukocyte Esterase Urine RBC Urine WBC Ur Epithelial Cells Urine Crystals Urine Bacteria Urine Casts Urine Mucus Ur Culture Indicated? Urine Glucose Urine Opiates Screen Urine Methadone Screen Ur Barbiturates Screen Ur Tricyclics Screen Ur Amphetamines Screen U Benzodiazepines Scrn Urine Cocaine Screen Ur THC Screen Ethyl Alcohol 407.5 H Cancelled 06/09/23 06/09/23 10:05 10:15 WBC RBC Hgb Hct MCV MCH MCHC RDW Plt Count MPV Immature Gran % Neutrophils % Lymphocytes % Monocytes % Eosinophils % Basophils % Nucleated RBC % Absolute Neutrophils Absolute Lymphocytes Absolute Monocytes Absolute Eosinophils Absolute Basophils RBC Morphology PT INR APTT VBG Lactate Sodium Potassium Chloride Carbon Dioxide Anion Gap BUN Creatinine Est GFR (CKD-EPI 2020) Glucose Calcium Magnesium Total Bilirubin AST ALT Alkaline Phosphatase Ammonia 20 Creatine Kinase Total Protein Albumin Lipase Urine Color Yellow Urine Clarity Sl Cloudy Urine pH 7.0 Ur Specific Cary 1.015 Urine Protein 100 H Urine Ketones Negative Urine Blood Trace-lysed H Urine Nitrite Negative Urine Bilirubin Negative Urine Urobilinogen 0.2 Ur Leukocyte Esterase Negative Urine RBC 0-2 Urine WBC Negative Ur Epithelial Cells Negative Urine Crystals Urine Bacteria Negative Urine Casts 0-2 Fine Granular Urine Mucus Negative Ur Culture Indicated? No Urine Glucose Negative Urine Opiates Screen Negative Urine Methadone Screen Negative Ur Barbiturates Screen Negative Ur Tricyclics Screen Negative Ur Amphetamines Screen Negative U Benzodiazepines Scrn Negative Urine Cocaine Screen Negative Ur THC Screen Negative Ethyl Alcohol Last Vital Signs Temp 36.8 C 06/09/23 09:27 Pulse 114 H 06/09/23 11:18 Resp 29 H 06/09/23 11:30 BP 144/82 H 06/09/23 11:18 Pulse Ox 99 06/09/23 09:27 PAWSS Have you Been Recently Intoxicated or Drunk Within the Last 30 days?: Yes Have you Ever Experienced Previous Episodes of Alcohol Withdrawal?: Yes Have you ever Experienced Withdrawal Seizures?: Yes Have you ever Experienced Delirium Tremens(DT)s?: Yes Have you ever undergone Alcohol Rehabilitation Treatment (i.e, inpt ot outpatient treatment programs)?: Yes Have you ever Experienced Blackouts?: Yes Have you ever Combined Alcohol with other Downers within the last 90 days?: No Have you ever Combined Alcohol with any other Substance of Abuse during the last 90 days?: No Positive Blood Alcohol level on Presentation? [PCS.BAL]: Unable to Obtain Evidence of Increased Autonomic Activity (i.e. HR>120, tremor, sweating, agitation, nausea)?: No Result: 6 Time Spent Time spent with Patient: 55-74 minutes Time was spent: preparing to see the patient(eg.review tests), obtaining and/or reviewing separately otained hiistory, ordering medications,tests, procedures, referring, communicating with other health personal care service provider, indepentently interpreting results, counseling the patient and care coordination
--- NOTE | 2023-06-09 12:45 | RT.EKG_ITS ---
APPROVED REPORT Exam: Resting ECG Reason for Exam: tachycardia Patient Location: I HR:128 bpm ECG Measurements Heart Rate [address] 152 P -4 QRSd 90 QRS 69 QT 328 T -46 QTc 479 Conclusion Sinus tachycardia...rate> 99 Left atrial enlargement...P, P'>60mS, <-0.15mV V1 Borderline T abnormalities, inferior leads...T flat/neg, II III aVF Borderline prolonged QT interval...QTc >475mS
--- NOTE | 2023-06-09 12:51 | PHA.REVIEW2 ---
Pharmacy Admission Review Admission Clinical Review Admission Pharmacy Review: No Known Allergies Allergy (Unverified 06/20/21 13:59) Resuscitation Status Full Code Height 6 ft 4 in Weight 115.9 kg Pharmacy Admission Review Renal Dosing Renal Dosing: BUN 11 mg/dL (7-18) 06/09/23 09:50 Creatinine 0.9 mg/dL (0.70-1.30) 06/09/23 09:50 Medications needing adjustments: Reviewed (CrCl 148.8 mL/min) Anticoagulation Anticoagulation: Hgb 15.7 g/dL (13.5-17.5) 06/09/23 09:50 Hct 44.9 % (40.0-50.0) 06/09/23 09:50 Plt Count 76 10^3/uL (130-400) L 06/09/23 09:50 INR 0.9 (0.9-1.1) 06/09/23 09:50 Creatinine 0.9 mg/dL (0.70-1.30) 06/09/23 09:50 DVT Prophylaxis: Reviewed Medications: Enoxaparin (40mg daily) Relevant Labs Relevant Labs: Sodium 142 mmol/L (136-145) 06/09/23 09:50 Potassium 3.6 mmol/L (3.5-5.1) 06/09/23 09:50 Chloride 101 mmol/L (98-107) 06/09/23 09:50 Magnesium 2.1 mg/dL (1.8-2.4) 06/09/23 09:50 Electrolytes, C-Reactive P, ESR: Reviewed (AST/ALT 367/238, PLT count 76) Cardiac Review Cardiac Review: Blood Pressure 162/130 1201 Blood Pressure 144/82 1118 Blood Pressure 149/90 1046 Blood Pressure 146/115 1044 Blood Pressure 156/92 1000 Blood Pressure 141/94 0955 Blood Pressure 168/109 0927 BP, HR, EF%: Reviewed (BP WNL, HR 135) QTc Review QTc: Reviewed (QTc 469 from 06/09/23) IV to PO Switch IV Medications: Reviewed (Phenobarbital) Home Meds Home Med List reviewed: Reviewed Current Meds Current Medication Order Review: Reviewed Comments: Phenobarbital for withdrawal Soft stop: 1302mg Hard stop: 1736mg So far patient has received first loading dose of 350mg, next loading dose of 260mg scheduled for 1400. Last CIWA score was 7at 1230
[2023-06-09 13:23] LABS: Lactate 3.8 mmol/L (0.6-1.4)
[2023-06-09] MEDS: Normal Saline 500 ML IV (13:36)
[2023-06-09] MEDS: Enoxaparin 40 MG/0.4 ML SYR SC (14:34)
[2023-06-09] MEDS: Normal Saline Flush 10 ML SYR IVP ×2 (14:34→23:26)
[2023-06-09] MEDS: Pantoprazole 40 MG VIAL IVP (14:34)
[2023-06-09] MEDS: Lactated Ringers 1,000 ML 250 ML IV (14:35)
[2023-06-09 18:15] LABS: Lactate 2.6 mmol/L (0.6-1.4)
[2023-06-09 18:26] LABS: Lipase 103 U/L (16-77)
[2023-06-09] MEDS: Lactated Ringers 1,000 ML 100 ML IV (19:18)
[2023-06-09] MEDS: Acetaminophen 325 MG TAB PO (20:19)
[2023-06-09] MEDS: PHENobarbital 130 MG/ML VIAL IVP ×2 (20:27→22:30)
[2023-06-09 21:58] LABS: Lactate 1.8 mmol/L (0.6-1.4)
--- NOTE | 2023-06-09 23:29 | NUR.NOTE ---
Nursing Note: Around 5 pt was found to have leaking IV, new IV placed. While removing old IV, pt became very agitated and vomited a few times before hemostasis could be achieved on IV site. 4 attempts were necessary to achieve hemostasis with a moderate amount of bleeding r/t episodes of emesis.
[2023-06-10] VITALS (22 sets, daily range): BP systolic 143–170; BP diastolic 93–118; PULSE 105–134; RESP 11–33; TEMP 36.5–37.8; O2SAT 94–100
[2023-06-10] MEDS: PHENobarbital 130 MG/ML VIAL IVP ×4 (00:20→07:45)
[2023-06-10 06:05] LABS: Lactate 0.8 mmol/L (0.6-1.4)
[2023-06-10 06:10] LABS: Abs Immature Grans 0.01 10^3/uL (0.0-0.06); Absolute Basophil Count 0.04 10^3/uL (0.0-0.2); Absolute Eosinophil Count 0.03 10^3/uL (0.0-0.7); Absolute Lymphocyte Count 0.73 10^3/uL (1.2-3.4); Absolute Monocyte Count 0.37 10^3/uL (0.1-0.8); Absolute Neutrophil Count 2.74 10^3/uL (1.2-6.7); Eosinophils % 0.8; HCT 39.7 % (40.0-50.0); HGB 13.9 g/dL (13.5-17.5); Immature Grans % 0.3; Lymphocytes % 18.6; MCH 31.3 pg (27.0-33.0); MCV 89 fL (80-95); MPV 10.4 fL (8.0-11.0); Monocytes % 9.4; Neutrophils % 69.9; RBC 4.44 10^6/uL (4.36-5.78); WBC 3.92 10^3/uL (4.4-10.8)
[2023-06-10 06:40] LABS: ALT 177 U/L (16-63); AST 203 U/L (15-37); Albumin 3.6 g/dL (3.4-5.0); Alkaline Phosphatase 95 U/L (46-116); Anion Gap 11.1 mmol/L (3-11); BUN 10 mg/dL (7-18); CO2 26.9 mmol/L (21.0-32.0); CREATININE 0.9 mg/dL (0.70-1.30); Calcium 7.9 mg/dL (8.5-10.1); Chloride 99 mmol/L (98-107); Estimated GFR 109.36 (mL/min/1.73m2); Glucose 92 mg/dL (74-106); Lipase 100 U/L (16-77); Magnesium 1.3 mg/dL (1.8-2.4); PHOSPHORUS 3.4 mg/dL (2.6-4.7); Potassium 3.5 mmol/L (3.5-5.1); Sodium 137 mmol/L (136-145); Total Protein 6.8 g/dL (6.4-8.2)
[2023-06-10 06:48] LABS: Diff Comment Diff Reviewed; Platelet Count 47 10^3/uL (130-400); RBC Morphology Normal
[2023-06-10] MEDS: Multivitamin TAB 1 TAB PO (07:45)
[2023-06-10] MEDS: Thiamine 100 MG TAB PO (07:45)
[2023-06-10] MEDS: Folic Acid 1 MG TAB PO (07:45)
[2023-06-10] MEDS: Losartan 25 MG TAB PO (07:45)
[2023-06-10] MEDS: Normal Saline Flush 10 ML SYR IVP ×2 (07:46→19:55)
--- NOTE | 2023-06-10 08:16 | PDOC.CMIN ---
Date of service: 06/10/23 Care Management Initial Assmt Initial Assessment REASON FOR HOSPITALIZATION:: Alcohol Withdrawal PFSH All Active Problems (Updated 06/09/23 @ 13:45 by Jayant Kothari MD) Alcoholic hepatitis (Acute) Lactate blood increased (Acute) Alcohol abuse (Chronic) Discharge planning issues (Acute) DVT prophylaxis (Acute) Transaminitis (Acute) Alcoholic hepatitis without ascites (Chronic) Essential hypertension (Chronic) Obstructive sleep apnea (Chronic) Alcohol withdrawal (Acute) Seizure (Acute) Thrombocytopenia (Acute) Medical History (Updated 06/09/23 @ 13:45 by Jayant Kothari MD) Atrial flutter ADHD (attention deficit hyperactivity disorder) Subdural hematoma Anxiety Surgical History Appendectomy Family History Other Alcohol use disorder Essential hypertension Heart disease Personal history of malignant neoplasm Social History Smoking/Tobacco Use Status: Former Tobacco Use Smoking risk assessment performed?: Yes Alcohol Intake: current Drug use: Rarely Substance use type: marijuana Details: Pt states he only drinks in intervals, is poor historian and not answering in definite amounts Housing: other Do you feel safe at home: Yes Do you feel safe in your relationship?: Yes SDOH(Care Management) Screening Will the Patient Participate in the Screening?: Unable to obtain
[2023-06-10] MEDS: MAGNESIUM SULFATE 4 GM/100 ML BAG IVINF (09:36)
[2023-06-10 10:15] LABS: PHENOBARBITAL 19.9 ug/mL (15.0-40.0)
[2023-06-10 10:43] LABS: HIV-1/2 Ag & Ab Screen Negative (Negative)
[2023-06-10 11:16] LABS: Hepatitis A Antibody IgM Positive (Negative); Hepatitis B Core Antibody Positive (Negative); Hepatitis B surface Ag Negative (Negative); Hepatitis C Ab w Rflx HCV PCR Negative (Negative)
--- NOTE | 2023-06-10 14:32 | PHA.ACLINAW ---
Renal Dosing Renal Dosing: BUN 10 mg/dL (7-18) 06/10/23 05:57 Creatinine 0.9 mg/dL (0.70-1.30) 06/10/23 05:57 Anticoagulation Anticoagulation: Hgb 13.9 g/dL (13.5-17.5) 06/10/23 05:57 Hct 39.7 % (40.0-50.0) L 06/10/23 05:57 Plt Count 47 10^3/uL (130-400) L 06/10/23 05:57 INR 0.9 (0.9-1.1) 06/09/23 09:50 Creatinine 0.9 mg/dL (0.70-1.30) 06/10/23 05:57 DVT Prophylaxis: Intervened (reduced Lovenox for Platelets < 50) Relevant Labs Relevant Labs: Sodium 137 mmol/L (136-145) 06/10/23 05:57 Potassium 3.5 mmol/L (3.5-5.1) 06/10/23 05:57 Chloride 99 mmol/L (98-107) 06/10/23 05:57 Phosphorus 3.4 mg/dL (2.6-4.7) 06/10/23 05:57 Magnesium 1.3 mg/dL (1.8-2.4) L 06/10/23 05:57 DM Control DM Control: Glucose 92 mg/dL (74-106) 06/10/23 05:57 SOAP Subjective: Patient of the IA, pt does have symptommactic tachy @ rest Objective: CIWA 2 currently, BP 152/103, HR 116, Mag 1.3, Plt 47, Phenobarbital level 19.9 Assessment: Highest CIWA overnight was 24, LFT's & Lipase trending down Notified ICU nurse that patient has gone above the Phenobarbital soft stop parameters, and any more doses would go above the protocol's hard stop limit. CIWA's have trended down. Phenobarbital level in range (15.0-40.0) Magnesium replaced IV Plan: Watch Platelets closely, as Lovenox was adjusted to 30mg daily for Plt < 50....if drops below 25, Lovenox should be held
--- NOTE | 2023-06-10 15:50 | INITIAL_ITS ---
Date of service: 06/10/23 Time of Service: 15:50 Care Management Initial Assmt Initial Assessment REASON FOR HOSPITALIZATION:: ETOH withdrawal seizures PREVIOUS FUNCTIONAL STATUS/SOCIAL/FAMILY SUPPORTS:: Nan lives in [place] in a mobile home with his son Karina. His father was also living with him but has been hospitalized for an extended period of time. 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 Nan is from his .They have 2 children together and he has a son, Que, from a previous relationship. Tera is independent at baseline and does not receive any community services. CURRENT FUNCTIONAL STATUS:: Tera was sitting up in bed in the ICU when CM met with him. He informed CM that he is feeling better but not good. Nan talked about his drinking patterns and the fact that he has been drinking daily for about 3 weeks. He had been sober from June until January and then had another episode where he drank daily for a couple of weeks. Nan stated that he knows he is killing himself and really needs help with treatment. He shared that he has tried to stop drinking on his own before but has never sought formal treatment. He now feels he is ready. Tera's father is also a patient at [facility] and has had a recent decline. CM discussed this with Tera at his sister's request as she is HCA for their father. ADVANCE DIRECTIVES:: none on file Has patient been provided with info about the portal/API?: Yes Did the patient sign up for the portal?: No CODE STATUS:: Full Code INSURANCE COVERAGE / FINANCIAL ISSUES:: [place] CURRENT HOME/COMMUNITY SERVICES/EQUIPMENT:: none PRIMARY CARE PHYSICIAN:: none POTENTIAL DISCHARGE NEEDS:: follow up with [facility] treatment PATIENT/FAMILY EDUCATION NEEDS:: Review of discharge instructions, limitations, follow up plan, precautions, discuss Ask Me Three TRANSPORTATION:: to be determined by disposition PLAN:: Tera's discharge plan in not clear at this point. He has requested transfer to the [place] [facility] but no bed has been available. He is also interested in [facility] treatment. CM will contact a [employer] for Nan who can help to support him through this process and possibly with connecting with a treatment program. CM will follow and continue to assess for discharge needs. PFSH All Active Problems (Updated 06/10/23 @ 16:46 by Jayant Kothari MD) Alcoholic hepatitis (Acute) Alcohol abuse (Chronic) Discharge planning issues (Acute) DVT prophylaxis (Acute) Transaminitis (Acute) Alcoholic hepatitis without ascites (Chronic) Essential hypertension (Chronic) Obstructive sleep apnea (Chronic) Alcohol withdrawal (Acute) Seizure (Acute) Thrombocytopenia (Acute) Medical History (Updated 06/10/23 @ 16:46 by Jayant Kothari MD) Atrial flutter ADHD (attention deficit hyperactivity disorder) Subdural hematoma Anxiety Surgical History Appendectomy Family History Other Alcohol use disorder Essential hypertension Heart disease Personal history of malignant neoplasm Social History Smoking/Tobacco Use Status: Former Tobacco Use Smoking risk assessment performed?: Yes Alcohol Intake: current Drug use: Rarely Substance use type: marijuana Details: Pt states he only drinks in intervals, is poor historian and not answering in definite amounts Housing: other Do you feel safe at home: Yes Do you feel safe in your relationship?: Yes SDOH(Care Management) Screening Will the Patient Participate in the Screening?: Unable to obtain
[2023-06-10] MEDS: Pantoprazole 40 MG VIAL IVP (16:11)
[2023-06-10] MEDS: Enoxaparin 30 MG/0.3 ML SYR SC (16:12)
--- NOTE | 2023-06-10 16:29 | PGE_ITS ---
Date of Service Date of service: 06/10/23 Time of Service: 16:29 Assessment and Plan Assessment and plan (1) Alcohol withdrawal: Status: Acute Assessment and plan: Patient is no longer exhibiting withdrawal symptoms and his CIWA score this afternoon has been low 2 to 3. he has completed full doses of phenobarbital. However, if he were to need further doses, his phenobarbital is well below the upper limits of therapeutic so he is far from being toxic on phenobarbital. So far he has had a total of 1150 mg of phenobarbital (hard stop of 15 mg/kg would be 1301 mg based on IBW of 86.76 kg, hard stop would be 1735 mg. He is stable for transfer to the floor. we will watch him for another 24 hours and if no further signs of withdrawal, he can be either discharge home for o utpatient follow up or if the [facility] accepts him for inpatient alcohol treatment. Qualifiers: Complication of substance-induced condition: uncomplicated Qualified Code(s): F10.930 - Alcohol use, unspecified with withdrawal, uncomplicated (2) Alcohol abuse: Status: Chronic Assessment and plan: as above. 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 (3) Alcoholic hepatitis: Status: Acute Assessment and plan: transaminases are improving, however his HAV IgM came back positive. Will put him on body fluid precautions and we will follow up w/ the [place] [facility] and order follow up antibody testing in 6 to 8 weeks. Qualifiers: Ascites presence: without ascites Qualified Code(s): K70.10 - Alcoholic hepatitis without ascites (4) Transaminitis: Status: Acute Assessment and plan: as above (5) Hepatitis A antibody positive: Status: Acute Assessment and plan: positive IgM antibody. will have him follow up w/ the [place] [facility] and get follow up serology in 6 to 8 weeks. (6) Thrombocytopenia: Status: Acute (7) Lactate blood increased: Status: Resolved Assessment and plan: lactated down to 0.8 now. iv fluids have been stopped. (8) DVT prophylaxis: Status: Acute Assessment and plan: currently on enoxaparin (9) Discharge planning issues: Status: Acute Assessment and plan: patient desires to enter inpatient alcohol rehab program. I will contact the [facility] tomorrow to see if they would still accept him. Subjective Subjective Interval history since last seen: Patient denies any abdominal pain or nausea or vomiting. He denies any tremors and feels that his acute alcohol withdrawal symptoms have abated. HIs main complaint is lack of sleep. I told him that his LFT remain elevated in the 's. Initially I expected that this was d/t acute alcoholic hepatitis however to my surprise his viral hepatitis panel came back positive for HAV IgM, he also has positive HBV core antibody but his HCV is negative and his HIV is negative. He indicated to me that he thinks he ate some pizza recently that may have been contaminated by a rodent in his home. Other than that he can not recall any other exposures. Exam Narrative Exam Narrative: Tera is alert and oriented, he is in no discomfort or distress. He does not appear jaundiced or icteric Abdomen: soft, nontender, no organomegaly No tremors Objective Last Vital Signs Temp 36.5 C 06/10/23 13:44 Pulse 116 H 06/10/23 13:44 Resp 12 06/10/23 13:44 BP 152/103 H 06/10/23 13:44 Pulse Ox 97 06/10/23 04:00 Laboratory Results - last 24 hr 06/09/23 06/09/23 06/09/23 09:50 18:07 21:55 WBC RBC Hgb Hct MCV MCH MCHC RDW Plt Count MPV Immature Gran % Neutrophils % Lymphocytes % Monocytes % Eosinophils % Basophils % Nucleated RBC % Absolute Neutrophils Absolute Lymphocytes Absolute Monocytes Absolute Eosinophils Absolute Basophils RBC Morphology VBG Lactate 2.6 H* 1.8 H Sodium Potassium Chloride Carbon Dioxide Anion Gap BUN Creatinine Est GFR (CKD-EPI 2020) Glucose Calcium Phosphorus Magnesium Total Bilirubin AST ALT Alkaline Phosphatase Total Protein Albumin Lipase 103 H Phenobarbital Hepatitis A IgM Ab Positive A Hep Bs Antigen Negative Hep B Core Total Ab Positive A Hepatitis C Antibody Negative HIV 1&2 Ag/Ab, 4th Gen Negative 06/10/23 06/10/23 06/10/23 05:37 05:57 05:57 WBC 3.92 L RBC 4.44 Hgb 13.9 Hct 39.7 L MCV 89 MCH 31.3 MCHC 35.0 RDW 14.0 Plt Count 47 L MPV 10.4 Immature Gran % 0.3 Neutrophils % 69.9 Lymphocytes % 18.6 Monocytes % 9.4 Eosinophils % 0.8 Basophils % 1.0 Nucleated RBC % 0.0 Absolute Neutrophils 2.74 Absolute Lymphocytes 0.73 L Absolute Monocytes 0.37 Absolute Eosinophils 0.03 Absolute Basophils 0.04 RBC Morphology Normal VBG Lactate 0.8 Sodium 137 Potassium 3.5 Chloride 99 Carbon Dioxide 26.9 Anion Gap 11.1 H BUN 10 Creatinine 0.9 Est GFR (CKD-EPI 2020) 109.36 Glucose 92 Calcium 7.9 L Phosphorus 3.4 Magnesium 1.3 L Total Bilirubin 1.0 AST 203 H ALT 177 H Alkaline Phosphatase 95 Total Protein 6.8 Albumin 3.6 Lipase Cancelled 100 H Phenobarbital 19.9 Hepatitis A IgM Ab Hep Bs Antigen Hep B Core Total Ab Hepatitis C Antibody HIV 1&2 Ag/Ab, 4th Gen PAWSS Have you Been Recently Intoxicated or Drunk Within the Last 30 days?: Yes Have you Ever Experienced Previous Episodes of Alcohol Withdrawal?: Yes Have you ever Experienced Withdrawal Seizures?: Yes Have you ever Experienced Delirium Tremens(DT)s?: No Have you ever undergone Alcohol Rehabilitation Treatment (i.e, inpt ot outpatient treatment programs)?: Yes Have you ever Experienced Blackouts?: Yes Have you ever Combined Alcohol with other Downers within the last 90 days?: No Have you ever Combined Alcohol with any other Substance of Abuse during the last 90 days?: No Positive Blood Alcohol level on Presentation? [PCS.BAL]: Yes Evidence of Increased Autonomic Activity (i.e. HR>120, tremor, sweating, agitation, nausea)?: Yes Result: 7 Time Spent with Patient Time Spent with Patient: 35-49 minutes Time was spent: preparing to see the patient(eg.review tests), ordering medications,tests, procedures, referring, communicating with other health career information specialist, indepentently interpreting results, counseling the patient and care coordination
[2023-06-10] MEDS: Melatonin 3 MG TAB 9 MG PO (18:57)
[2023-06-11] VITALS (16 sets, daily range): BP systolic 148–149; BP diastolic 98–99; PULSE 101–155; RESP 10–33; TEMP 36.9–37.8; O2SAT 98–99
--- NOTE | 2023-06-11 06:58 | NUR.NOTE ---
Patient took 3 walks this shift and visited his father on one of them. Pt anxious over his father's status and his desire to go to rehab. education done per hepatitis A and phenobarb.
[2023-06-11 07:00] LABS: ALT 168 U/L (16-63); AST 168 U/L (15-37); Albumin 3.7 g/dL (3.4-5.0); Alkaline Phosphatase 98 U/L (46-116); Anion Gap 9.8 mmol/L (3-11); BUN 8 mg/dL (7-18); Bilirubin, Total 0.8 mg/dL (0.2-1.0); CO2 26.2 mmol/L (21.0-32.0); CREATININE 0.9 mg/dL (0.70-1.30); Calcium 8.4 mg/dL (8.5-10.1); Chloride 99 mmol/L (98-107); Estimated GFR 109.36 (mL/min/1.73m2); Glucose 119 mg/dL (74-106); Magnesium 2.2 mg/dL (1.8-2.4); Potassium 3.3 mmol/L (3.5-5.1); Sodium 135 mmol/L (136-145); Total Protein 7.2 g/dL (6.4-8.2)
--- NOTE | 2023-06-11 07:08 | NUR.NOTE ---
0600-pt took 3 walks during this shift. 1 was to room 225 and 2 were in the icu only. Heart rate increased to 130-140 everytime but pt was asymptomatic.Nursing Note:
[2023-06-11] MEDS: Folic Acid 1 MG TAB PO (08:14)
[2023-06-11] MEDS: Losartan 25 MG TAB PO (08:14)
[2023-06-11] MEDS: Multivitamin TAB 1 TAB PO (08:14)
[2023-06-11] MEDS: Thiamine 100 MG TAB PO (08:14)
[2023-06-11] MEDS: Normal Saline Flush 10 ML SYR IVP (08:15)
[2023-06-11] MEDS: Potassium Chloride 20 MEQ TABCR 40 MEQ PO (08:59)
--- NOTE | 2023-06-11 12:08 | DSE_ITS ---
Date of service: 06/11/23 Time of Service: 12:08 DS: Diagnosis Discharge Diagnosis (1) Alcohol withdrawal: Status: Acute (2) Alcohol abuse: Status: Chronic (3) Alcoholic hepatitis: Status: Acute (4) Transaminitis: Status: Acute (5) Hepatitis A antibody positive: Status: Acute (6) Thrombocytopenia: Status: Acute (7) Lactate blood increased: Status: Resolved (8) Discharge planning issues: Status: Acute Discharge Plan Disposition Patient Disposition: Home Condition: Improving Discharge Details Reason For Visit: Alcohol Withdrawal Admit Date/Time: 06/09/23 11:12 Admit Provider: Jayant Kothari Attending Provider: Jayant Kothari Primary Care Provider: None,None Hospital Course Hospital Course: 43-year-old male with a history of alcoholism previous episodes of alcohol withdrawal complicated by seizures presented emergency department at the advice of his psychiatrist. Patient is followed by his primary care provider through the [facility] and by his psychiatrist through the [facility]. Patient continues to drink on a regular basis and actually came in intoxicated with a blood alcohol level 407 mg/dL. Rest of his urine tox screen was negative. Screening labs show elevated transaminases with an AST of 367, ALT 03/22/1936, alkaline phosphatase 219 but normal bilirubin 0.6 and elevated lactate of 3.0 and normal ammonia level of 20 with mild elevation of his lipase of 125. He had no leukocytosis and no anemia but has a low platelet count of 76,000. Patient was started on phenobarbital protocol started on loading dose of 10 mg/kg initially was given 40% of the total dose based on his ideal body weight and then subsequent loading doses of 30% of the total dose which was given 3 hours later and the final 30% 3 hours after that. Patient did receive further as needed doses of phenobarbital but was feeling markedly better by 06/10/2023. And by 06/11/2023 he was having no symptoms whatsoever of alcohol withdrawal. His initial agitation and tremors had resolved and his tachycardia had resolved. Only residual symptoms include problems with insomnia. That was corrected on the night prior to discharge by giving him a low-dose of Lunesta. Initially the plan was for him to go down to the [facility] in [place] for inpatient alcohol rehabilitation however because his father who has been chronically hospitalized at [facility] awaiting placement and now his father has taken a turn for the worse with respiratory failure from pneumonia the patient did not want to leave the immediate area around [facility] and become an inpatient in a rehab center for 30 days and not be able to see his father. Care management symptomatic with a control and recovery combat rescue and the patient was discharged home to follow-[facility]. His transaminitis did improved but did not completely resolve. However his prothrombin time and albumin levels were no rmal. Thus his synthetic function of his liver remains intact. HIV and hepatitis screen was obtained and he was found to have positive IgM antibody for hepatitis A. Upon further questioning the patient sounds like he has had a rodent problem in his home and may have eaten some contaminated food. Other than that he has had no other contacts that he knows of where he could have obtained hepatitis A. 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 The laboratory from [facility] notified the [facility] of a positive hepatitis A viral antibody. I subsequently spoke with the [facility] and answered their questions. They will follow-up with the patient as an outpatient. I did order repeat CMP to be performed in 1 week to assess resolution of his transaminitis. I ordered repeat hepatitis a viral IgM antibody to be performed in 3 months in order to obtain a convalescent titers. Patient was discharged in markedly improved condition with no residual symptoms of alcohol withdrawal. Patient seems determined to follow through with outpatient counseling and he met with his control and recovery combat rescue prior to discharge. Home Meds and New Rx's Prescriptions: New acamprosate 333 mg tablet,delayed release (DR/EC) 666 mg PO TID 30 Days Qty: 180 0RF Rx Instructions: administer with mid-day and evening meals Continued losartan 25 mg Tablet 25 mg PO DAILY Patient Comments: 06/19/21 pt is unsure of dose Discharge Instructions Instructions: Acamprosate (By mouth), Alcohol Use Disorder (DC) Additional Instructions: Follow up w/ your control and recovery combat rescue. Should you have a relapse of your alcoholism and feel that you are going through withdrawal, present to the emergency room for evaluation. Referrals: [facility] [Outside] (call the office on Tuesday for follow up w/ your PCP; be sure to get follow up labs in one week, repeat hepatitis antibody titer in 3 months) Activity:: Activity as Tolerated Equipment/Supplies:: No Equipment Needed Diet:: Normal Diet Discharge Orders Discharge Orders: Discharge Order (Routine); Ordered 06/11/23 Ordered By: Jayant Kothari Other Ambulatory Orders: Comprehensive Metabolic Panel (Routine) Timeframe: 1 Week Facility: [facility] - Location: Laboratory Outpatient - [facility] Ordered By: Jayant Kothari Hep A Total Ab w Rflx IgM (Routine) Timeframe: 3 Months Facility: [facility] - Location: Laboratory Nonpatient Ordered By: Jayant Kothari Discharge Data Discharge Date/Time-TO BE ENTERED AT DEPARTURE: 06/11/23 13:40 DS: Summary Time Spent with Patient providing and/or coordinating discharge services: Greater than 30 minutes Specific discharge activities: Interview/exam of patient; review of discharge instructions, completion of prescriptions/discharge instructions; discussion w/ nursing and CM; documentation of hospital visit Status at Discharge Functional status at discharge: independent ambulation Overall status at discharge: patient is progressing back to baseline Mental Status: mental status grossly normal Speech and Movement: speech and movement normal Mood: congruent mood Affect: normal affect Quality:SDOH Health Related Social Needs: No Data to Display Exam Narrative Exam Narrative: Tera is alert oriented x 3 denies any tremors Abdomen soft nontender nondistended normal bowel sounds no organomegaly Skin nondiaphoretic Hands without tremors Psych Mental Status: mental status grossly normal Speech and Movement: speech and movement normal Mood: congruent mood Affect: normal affect DS: Data Vitals/I&O Vitals and I&O: Vital Signs Temperature 37.8 C H 06/11/23 04:08 Temperature Source Tympanic 06/11/23 04:08 Pulse 101 H 06/11/23 05:51 Pulse Rhythm Regular 06/11/23 07:44 Pulse 126 H 06/11/23 06:04 Respiratory Rate 15 06/11/23 06:04 Respiratory Effort Normal 06/11/23 07:44 Respiratory Depth Normal 06/11/23 07:44 Respiratory Pattern Normal 06/11/23 07:44 Blood Pressure 149/98 H 06/11/23 05:51 Blood Pressure Mean 111 06/11/23 05:51 Blood Pressure Position Supine 06/10/23 15:30 Pulse Oximetry 99 06/11/23 04:08 Oxygen Delivery Method Room Air 06/11/23 04:08 Oxygen Flow Rate 0 06/11/23 04:08 Pain Level 1 06/11/23 04:08 Intake & Output 06/10/23 06/11/23 06/11/23 23:59 11:59 23:59 Intake Total 1060 / 2570 1790 / 1790 Output Total 1600 / 3050 2850 / 2850 Balance -540 / -480 -1060 / -1060 Weight 112.1 kg Intake: IV 120 / 1150 100 / 100 Oral 940 / 1420 1690 / 1690 Output: Urine 1600 / 3050 2850 / 2850 Other: Urine Color Light Delia Yellow Urine Appearance Clear Clear Urine Odor None Normal Comment voiding in urinal Stool Size Small Stool Characteristics Liquid Voiding Methods Urinal Urinal Data Completed and Pending Labs on day of discharge: Labs from last 24 hours 06/11/23 05:30 Sodium 135 L Potassium 3.3 L Chloride 99 Carbon Dioxide 26.2 Anion Gap 9.8 BUN 8 Creatinine 0.9 Est GFR (CKD-EPI 2020) 109.36 Glucose 119 H Calcium 8.4 L Magnesium 2.2 Total Bilirubin 0.8 AST 168 H ALT 168 H Alkaline Phosphatase 98 Total Protein 7.2 Albumin 3.7 PFSH All Active Problems Hepatitis A antibody positive (Acute) Alcoholic hepatitis (Acute) Alcohol abuse (Chronic) Discharge planning issues (Acute) DVT prophylaxis (Acute) Transaminitis (Acute) Alcoholic hepatitis without ascites (Chronic) Essential hypertension (Chronic) Obstructive sleep apnea (Chronic) Alcohol withdrawal (Acute) Seizure (Acute) Thrombocytopenia (Acute) Medical History Atrial flutter ADHD (attention deficit hyperactivity disorder) Subdural hematoma Anxiety Surgical History Appendectomy Family History Other Alcohol use disorder Essential hypertension Heart disease Personal history of malignant neoplasm Social History Smoking/Tobacco Use Status: Former Tobacco Use Smoking risk assessment performed?: Yes Alcohol Intake: current Drug use: Rarely Substance use type: marijuana Details: Pt states he only drinks in intervals, is poor historian and not answering in definite amounts Housing: other Do you feel safe at home: Yes Do you feel safe in your relationship?: Yes Time Spent with Patient Time Spent with Patient: <45 minutes Time was spent: preparing to see the patient(eg.review tests), ordering medications,tests, procedures, referring, communicating with other health personal care attendant, indepentently interpreting results, counseling the patient and care coordination
--- NOTE | 2023-06-12 08:10 | PDOC.CMDIS ---
Date of service: 06/11/23 LACE Index Scoring Tool Questions: Length of Stay (in days): 2 Was the patient admitted via the E.D.?: Yes E.D. Visits: 0 Answers: Total Score: 5 Risk of Readmission: Low Risk Care Management Discharge Plan Reason for Hospitalization: ETOH withdrawal seizures Discharge Plan: Tera will discharge home when medically cleared. He will follow up with [facility]. [facility] He will transport via private vehicle. He will follow up with his PCP and discharge plan of care. Patient/Family Education Needs: Review discharge instructions and limitations, discussion of self care needs including Ask Me Three [facility] Health Related Social Needs: No Data to Display
[2023-06-13 15:48] LABS: HBc IgM Ab, S Negative (Negative)
== END 2023-06-11 13:40 | disposition home or self-care (01) | DRG 897 ==
LOC: ER 11:50 → ICU 12:11
PROVIDERS: Admitting Provider Internal Medicine; Emergency Provider Physician Assistant; Visit Provider Internal Medicine
DX: F10.130 Alcohol abuse with withdrawal, uncomplicated (principal); E87.20 Acidosis, unspecified; K70.10 Alcoholic hepatitis without ascites; D69.6 Thrombocytopenia, unspecified; I10 Essential (primary) hypertension; G47.33 Obstructive sleep apnea (adult) (pediatric); F90.9 Attention-deficit hyperactivity disorder, unspecified type; F41.9 Anxiety disorder, unspecified; F12.90 Cannabis use, unspecified, uncomplicated; Z87.891 Personal history of nicotine dependence; R76.8 Other specified abnormal immunological findings in serum; F10.129 Alcohol abuse with intoxication, unspecified; Y90.8 Blood alcohol level of 240 mg/100 ml or more
CPT/HCPCS: 00123; 36415; 80053; 80307; 82550; 83690; 86704; 86709; 86803; 87340; 87389; 93005; 96365; 96366; 96367; 96375; 99285; J1650; 76705; 80184; 80320; 81003; 81015; 82140; 83605; 83735; 84100; 85025; 85610; 85730; 86705; 93010; 99232; 99238; 99291; J2060; J2470; J2560; J3411; J3475